=== PATIENT | female | born 1995 | race Caucasian/White ===

== ENCOUNTER 2018-01-05 01:16 | Emergency (ER) | payer SELFPAY ==
[2018-01-05] MEDS ORDERED: HALOPERIDOL LACTATE INJ 5 MG/1 ML VIAL IV ONE ×2 (01:32→03:40)
[2018-01-05] MEDS ORDERED: DIPHENHYDRAMINE HCL 50 MG/ML VIAL IV ONE (01:33)
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
[2018-01-05 02:22] LABS: ABSOLUTE EOSINOPHILS # (AUTO) 0.1 10^3/uL (0.0-0.6); ABSOLUTE LYMPHOCYTES (AUTO) 3.8 10^3/uL (0.5-4.7); ABSOLUTE MONOCYTES (AUTO) 0.6 10^3/uL (0.1-1.4); ABSOLUTE NEUT (AUTO) 7.2 10^3/uL (1.7-8.2); BASOPHILS % (AUTO) 0.4 % (0-2); HEMATOCRIT 39.4 % (36.0-47.0); HEMOGLOBIN 13.6 g/dL (12.0-15.5); LYMPHOCYTES % (AUTO) 32.3 % (13-45); MEAN CORPUSCULAR HGB CONC 34.5 g/dL (32.0-36.0); MEAN CORPUSCULAR VOLUME 87 fl (80-97); MONOCYTES % (AUTO) 5.2 % (3-13); PLATELET COUNT 390 10^3/uL (150-450); RED BLOOD COUNT 4.53 10^6/uL (3.72-5.28); RED CELL DISTRIBUTION WIDTH 12.6 % (11.5-14.0); SEGMENTED NEUTROPHILS % (AUTO) 61.1 % (42-78); TOTAL CELLS COUNTED % (AUTO) 100 %; WHITE BLOOD COUNT 11.7 10^3/uL (4.0-10.5)
[2018-01-05 02:28] LABS: APPEARANCE,URINE CLEAR; BILIRUBIN,URINE NEGATIVE (NEGATIVE); COLOR,URINE STRAW; GLUCOSE, URINE NEGATIVE (NEGATIVE); KETONES,URINE NEGATIVE (NEGATIVE); LEUKOCYTE ESTERASE,URINE NEGATIVE (NEGATIVE); NITRITE,URINE NEGATIVE (NEGATIVE); PROTEIN,URINE NEGATIVE (NEGATIVE); URINE SPECIFIC GRAVITY 1.002; UROBILINOGEN,URINE NEGATIVE mg/dL (<2.0)
[2018-01-05 02:44] LABS: URINE AMPHETAMINES SCREEN NEGATIVE; URINE BARBITURATES SCREEN NEGATIVE; URINE BENZODIAZEPINES SCREEN UNCONFIRMED POSITIVE; URINE PHENCYCLIDINE SCREEN NEGATIVE
[2018-01-05 02:51] LABS: ALANINE AMINOTRANSFERASE 18 U/L (9-52); ALBUMIN 4.4 g/dL (3.5-5.0); ALCOHOL 273 mg/dL (NONE DETECTED); ALKALINE PHOSPHATASE 67 U/L (38-126); ANION GAP 13 (5-19); ASPARTATE AMINO TRANSFERASE 21 U/L (14-36); BILIRUBIN,DIRECT 0.4 mg/dL (0.0-0.4); BILIRUBIN,TOTAL 0.4 mg/dL (0.2-1.3); BLOOD UREA NITROGEN 10 mg/dL (7-20); CALCIUM 9.4 mg/dL (8.4-10.2); CARBON DIOXIDE 23 mmol/L (22-30); CHLORIDE 112 mmol/L (98-107); GLUCOSE 107 mg/dL (75-110); POTASSIUM 3.8 mmol/L (3.6-5.0); SODIUM 148.1 mmol/L (137-145); TOTAL PROTEIN 7.2 g/dL (6.3-8.2)
[2018-01-05 02:52] LABS: ACETAMINOPHEN < 10 ug/mL (10-30); SALICYLATE < 1.0 mg/dL (2.0-20.0)
[2018-01-05 02:53] LABS: URINE MARIJUANA (THC) SCREEN NEGATIVE
[2018-01-05 02:54] LABS: URINE METHADONE SCREEN NEGATIVE
[2018-01-05 03:08] LABS: URINE COCAINE SCREEN NEGATIVE
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
[2018-01-05 10:13] VITALS: BP 128/81
--- NOTE | 2018-01-05 15:25 | EKG REPORT ---
SEVERITY:- BORDERLINE ECG - SINUS TACHYCARDIA BORDERLINE RIGHT AXIS DEVIATION BORDERLINE PROLONGED QT INTERVAL : Confirmed by: Lubna Gilliam MD 05-Jan-2018 15:25:02
== END 2018-01-05 10:12 | disposition home or self-care (01) ==
LOC: ER 01:16
DX: Z04.1 Encounter for examination and observation following transport accident (principal); F10.129 Alcohol abuse with intoxication, unspecified; R00.0 Tachycardia, unspecified
CPT/HCPCS: 93005; 96376; 99285; 96374; 36415; 80307 ×4; 84703; 85025; 80053; 81001; 93010; J1630

== ENCOUNTER 2018-04-13 00:08 | Inpatient (IN) | payer OTHER ==
[2018-04-13] MEDS ORDERED: NALOXONE HCL INJ/PF 0.4 MG/1 ML SDV IV ONE (00:09)
[2018-04-13] MEDS: NORMAL SALINE 1000 ML 1,000 ML IV PRN ×4 (00:10→05:00)
[2018-04-13] MEDS ORDERED: ETOMIDATE INJ/PF 20 MG/10 ML SDV IV ONE (00:12)
[2018-04-13] MEDS ORDERED: NALOXONE HCL INJ 2 MG/2 ML DISP.SYRIN ONE (00:14)
[2018-04-13] MEDS ORDERED: PROPOFOL 1,000 MG/100 ML INFUS..BTL IV ONE (00:23)
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
[2018-04-13] MEDS ORDERED: VECURONIUM BROMIDE INJ 10 MG VIAL IV ONE ×2 (00:31)
[2018-04-13] MEDS: PROPOFOL 1,000 MG/100 ML INFUS..BTL IV PRN ×2 (00:34→07:20)
[2018-04-13] MEDS ORDERED: SUCCINYLCHOLINE CHLORIDE INJ 200 MG/10 ML VIAL IV ONE (00:36)
--- NOTE | 2018-04-13 00:53 | RADIOLOGY REPORT (SQ) ---
EXAM DESCRIPTION: X-ray single view chest. CLINICAL HISTORY: 22 years Female, sp et tube COMPARISON: None. TECHNIQUE: Single portable view of the chest performed on 04/13/2018 at 12:34 AM FINDINGS: The lungs are well expanded and are clear. There is no evidence of a pneumothorax. The cardiac silhouette is normal in size and configuration. The mediastinal contours are normal. No acute osseous abnormality is identified. No focal soft tissue abnormalities are seen. Incidentally noted are bilateral nipple piercings. Lines and tubes: An endotracheal tube is present which terminates at the level of the inferior clavicular heads. A feeding tube extends below the diaphragm and terminates in the left upper quadrant in the region of the stomach. IMPRESSION: 1. No evidence of acute intrathoracic disease. 2. Life support lines and tubes in grossly satisfactory position.
[2018-04-13 01:08] LABS: ABSOLUTE LYMPHOCYTES (AUTO) 1.6 10^3/uL (0.5-4.7); ABSOLUTE MONOCYTES (AUTO) 0.5 10^3/uL (0.1-1.4); ABSOLUTE NEUT (AUTO) 3.5 10^3/uL (1.7-8.2); BASOPHILS % (AUTO) 0.6 % (0-2); EOSINOPHILS % (AUTO) 0.6 % (0-6); HEMATOCRIT 33.6 % (36.0-47.0); HEMOGLOBIN 11.8 g/dL (12.0-15.5); LYMPHOCYTES % (AUTO) 28.3 % (13-45); MEAN CORPUSCULAR HEMOGLOBIN 30.7 pg (27.0-33.4); MEAN CORPUSCULAR VOLUME 88 fl (80-97); PLATELET COUNT 308 10^3/uL (150-450); RED BLOOD COUNT 3.84 10^6/uL (3.72-5.28); RED CELL DISTRIBUTION WIDTH 12.2 % (11.5-14.0); SEGMENTED NEUTROPHILS % (AUTO) 62.5 % (42-78); TOTAL CELLS COUNTED % (AUTO) 100 %; WHITE BLOOD COUNT 5.7 10^3/uL (4.0-10.5)
[2018-04-13 01:13] LABS: VENOUS BLOOD BASE EXCESS -3.8 mmol/L; VENOUS BLOOD HCO3 21.8 mmol/L (20-32); VENOUS BLOOD PCO2 41.5 mmHg (35-63); VENOUS BLOOD PH 7.34 (7.30-7.42)
[2018-04-13 01:17] LABS: APPEARANCE,URINE CLEAR; BILIRUBIN,URINE NEGATIVE (NEGATIVE); COLOR,URINE COLORLESS; GLUCOSE, URINE NEGATIVE (NEGATIVE); KETONES,URINE NEGATIVE (NEGATIVE); LEUKOCYTE ESTERASE,URINE NEGATIVE (NEGATIVE); NITRITE,URINE NEGATIVE (NEGATIVE); PROTEIN,URINE NEGATIVE (NEGATIVE); URINE SPECIFIC GRAVITY 1.003; UROBILINOGEN,URINE NEGATIVE mg/dL (<2.0)
[2018-04-13 01:27] LABS: ALANINE AMINOTRANSFERASE 15 U/L (9-52); ALBUMIN 3.2 g/dL (3.5-5.0); ALCOHOL 142 mg/dL (NONE DETECTED); ALKALINE PHOSPHATASE 47 U/L (38-126); ANION GAP 9 (5-19); ASPARTATE AMINO TRANSFERASE 12 U/L (14-36); BILIRUBIN,DIRECT 0.1 mg/dL (0.0-0.4); BILIRUBIN,TOTAL 0.2 mg/dL (0.2-1.3); BLOOD UREA NITROGEN 14 mg/dL (7-20); CARBON DIOXIDE 22 mmol/L (22-30); CHLORIDE 113 mmol/L (98-107); GLUCOSE 113 mg/dL (75-110); POTASSIUM 3.8 mmol/L (3.6-5.0); SODIUM 144.4 mmol/L (137-145); TOTAL PROTEIN 5.3 g/dL (6.3-8.2)
[2018-04-13 01:30] LABS: ACETAMINOPHEN < 10 ug/mL (10-30); SALICYLATE < 1.0 mg/dL (2.0-20.0)
[2018-04-13 01:37] LABS: URINE AMPHETAMINES SCREEN UNCONFIRMED POSITIVE; URINE BARBITURATES SCREEN NEGATIVE; URINE BENZODIAZEPINES SCREEN NEGATIVE; URINE COCAINE SCREEN NEGATIVE; URINE MARIJUANA (THC) SCREEN NEGATIVE; URINE METHADONE SCREEN NEGATIVE; URINE PHENCYCLIDINE SCREEN NEGATIVE
[2018-04-13] MEDS ORDERED: NORMAL SALINE 1000 ML 1,000 ML IV ONE (02:06)
[2018-04-13] MEDS ORDERED: PROPOFOL 1,000 MG/100 ML INFUS..BTL IV PRN (02:20)
[2018-04-13 02:27] LABS: ARTERIAL BLOOD BASE EXCESS -4.2 mmol/L; ARTERIAL BLOOD FIO2 40%; ARTERIAL BLOOD HCO3 19.9 mmol/L (20-24); ARTERIAL BLOOD O2 SATURATION 98.9 % (94-98); ARTERIAL BLOOD PCO2 33.2 mmHg (35-45); ARTERIAL BLOOD PO2 147.9 mmHg (80-100); ARTERIAL BLOOD TOTAL CO2 20.9 mmol/L (21-25)
[2018-04-13 02:45] LABS: CREATINE KINASE MB 0.31 ng/mL (<4.55)
[2018-04-13 02:55] LABS: TROPONIN I < 0.012 ng/mL
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
[2018-04-13] MEDS: HEPARIN SOD (PORCINE) 5,000 UNIT/ML 1 ML SYRINGE SUBCUT SCH ×3 (06:50→21:55)
[2018-04-13 06:54] LABS: ARTERIAL BLOOD BASE EXCESS -4.5 mmol/L; ARTERIAL BLOOD FIO2 30%; ARTERIAL BLOOD H2CO3 1.11 mmol/L (1.05-1.35); ARTERIAL BLOOD HCO3 20.4 mmol/L (20-24); ARTERIAL BLOOD PCO2 36.8 mmHg (35-45); ARTERIAL BLOOD PH 7.36 (7.35-7.45); ARTERIAL BLOOD PO2 55.3 mmHg (80-100); ARTERIAL BLOOD TOTAL CO2 21.5 mmol/L (21-25)
[2018-04-13 07:23] LABS: CREATINE KINASE MB 0.43 ng/mL (<4.55)
[2018-04-13 07:24] LABS: TROPONIN I < 0.012 ng/mL
--- NOTE | 2018-04-13 09:19 | PDOC PROGRESS REPORT ---
Subjective Progress Note for:: 04/13/18 Subjective:: Patient is intubated but responding to questions. She does not open her eyes but she nods her head and raises her eyebrows. She also moves her hands purposefully. Reason For Visit: OVERDOSE Physical Exam Vital Signs: Temp Pulse Resp BP Pulse Ox 14 107/67 100 04/13/18 08:16 04/13/18 08:16 04/13/18 08:36 Intake & Output 04/12/18 04/13/18 04/14/18 06:59 06:59 06:59 Intake Total 3081 1067 Output Total 1000 Balance 2081 1067 Weight 50 kg General appearance: PRESENT: no acute distress, cooperative - As much as she can be while intubated and only lightly sedated, well-developed Head exam: PRESENT: atraumatic, normocephalic Mouth exam: PRESENT: moist Throat exam: PRESENT: other - Endotracheal tube in place. Orogastric tube in place. Neck exam: ABSENT: lymphadenopathy, tenderness Respiratory exam: PRESENT: clear to auscultation doris, symmetrical, unlabored. ABSENT: crackles, rales, rhonchi, stridor, wheezes Cardiovascular exam: PRESENT: RRR, +S1, +S2. ABSENT: systolic murmur Pulses: PRESENT: normal radial pulses, normal dorsalis pedis pul GI/Abdominal exam: PRESENT: normal bowel sounds, soft. ABSENT: distended, tenderness Extremities exam: ABSENT: calf tenderness, pedal edema Musculoskeletal exam: PRESENT: normal inspection Neurological exam: PRESENT: other - Responds to questions by nodding head. She is in soft wrist restraints but she does move her hands and will provide a thumbs up to answer questions. Results Laboratory Results: 04/13/18 00:48 04/13/18 00:48 04/13/18 04/13/18 04/13/18 00:48 00:48 00:48 WBC 5.7 RBC 3.84 Hgb 11.8 L Hct 33.6 L MCV 88 MCH 30.7 MCHC 35.0 RDW 12.2 Plt Count 308 Seg Neutrophils % 62.5 Lymphocytes % 28.3 Monocytes % 8.0 Eosinophils % 0.6 Basophils % 0.6 Absolute Neutrophils 3.5 Absolute Lymphocytes 1.6 Absolute Monocytes 0.5 Absolute Eosinophils 0.0 Absolute Basophils 0.0 Carbonic Acid HCO3/H2CO3 Ratio ABG pH ABG pCO2 ABG pO2 ABG HCO3 ABG O2 Saturation ABG Base Excess VBG pH 7.34 VBG pCO2 41.5 VBG HCO3 21.8 VBG Base Excess -3.8 FiO2 Sodium 144.4 Potassium 3.8 Chloride 113 H Carbon Dioxide 22 Anion Gap 9 BUN 14 Creatinine 0.64 Est GFR ( Amer) > 60 Est GFR (Non-Af Amer) > 60 Glucose 113 H Lactic Acid Calcium 8.0 L Total Bilirubin 0.2 AST 12 L ALT 15 Alkaline Phosphatase 47 Total Protein 5.3 L Albumin 3.2 L Serum HCG, Qual Urine Color Urine Appearance Urine pH Ur Specific [place] Urine Protein Urine Glucose (UA) Urine Ketones Urine Blood Urine Nitrite Ur Leukocyte Esterase Urine WBC (Auto) Urine RBC (Auto) 04/13/18 04/13/18 04/13/18 00:48 00:48 00:48 WBC RBC Hgb Hct MCV MCH MCHC RDW Plt Count Seg Neutrophils % Lymphocytes % Monocytes % Eosinophils % Basophils % Absolute Neutrophils Absolute Lymphocytes Absolute Monocytes Absolute Eosinophils Absolute Basophils Carbonic Acid HCO3/H2CO3 Ratio ABG pH ABG pCO2 ABG pO2 ABG HCO3 ABG O2 Saturation ABG Base Excess VBG pH VBG pCO2 VBG HCO3 VBG Base Excess FiO2 Sodium Potassium Chloride Carbon Dioxide Anion Gap BUN Creatinine Est GFR ( Amer) Est GFR (Non-Af Amer) Glucose Lactic Acid 1.9 Calcium Total Bilirubin AST ALT Alkaline Phosphatase Total Protein Albumin Serum HCG, Qual NEGATIVE Urine Color COLORLESS Urine Appearance CLEAR Urine pH 6.0 Ur Specific [place] 1.003 Urine Protein NEGATIVE Urine Glucose (UA) NEGATIVE Urine Ketones NEGATIVE Urine Blood NEGATIVE Urine Nitrite NEGATIVE Ur Leukocyte Esterase NEGATIVE Urine WBC (Auto) 0 Urine RBC (Auto) 0 04/13/18 04/13/18 01:35 06:20 WBC RBC Hgb Hct MCV MCH MCHC RDW Plt Count Seg Neutrophils % Lymphocytes % Monocytes % Eosinophils % Basophils % Absolute Neutrophils Absolute Lymphocytes Absolute Monocytes Absolute Eosinophils Absolute Basophils Carbonic Acid 1.00 L 1.11 HCO3/H2CO3 Ratio 19:1 18:1 ABG pH 7.40 7.36 ABG pCO2 33.2 L 36.8 ABG pO2 147.9 H 55.3 L ABG HCO3 19.9 L 20.4 ABG O2 Saturation 98.9 H 88.0 L ABG Base Excess -4.2 -4.5 VBG pH VBG pCO2 VBG HCO3 VBG Base Excess FiO2 40% 30% Sodium Potassium Chloride Carbon Dioxide Anion Gap BUN Creatinine Est GFR ( Amer) Est GFR (Non-Af Amer) Glucose Lactic Acid Calcium Total Bilirubin AST ALT Alkaline Phosphatase Total Protein Albumin Serum HCG, Qual Urine Color Urine Appearance Urine pH Ur Specific [place] Urine Protein Urine Glucose (UA) Urine Ketones Urine Blood Urine Nitrite Ur Leukocyte Esterase Urine WBC (Auto) Urine RBC (Auto) 04/13/18 04/13/18 04/13/18 00:48 00:48 06:45 Creatine Kinase 39 32 CK-MB (CK-2) 0.31 Troponin I < 0.012 04/13/18 06:45 Creatine Kinase CK-MB (CK-2) 0.43 Troponin I < 0.012 Impressions: Chest X-Ray 04/13/18 00:26 IMPRESSION: 1. No evidence of acute intrathoracic disease. 2. Life support lines and tubes in grossly satisfactory position. Assessment & Plan - Diagnosis (1) Overdose Qualifiers: Encounter type: subsequent encounter Injury intent: undetermined intent Qualified Code(s): T50.904D - Poisoning by unspecified drugs, medicaments and biological substances, undetermined, subsequent encounter Is this a current diagnosis for this admission?: Yes Plan: The patient was intubated for airway protection. She was given fluids. No specific antidote was required. Her alcohol level was elevated at 142. Urine screen was positive for amphetamines from her Adderall but she had no benzodiazepines despite prescription for Xanax. No serum level for Lunesta was obtained. Psychiatry will be seeing the patient today. She will be extubated. If psychiatry suggests and she is stable she can be discharged. I did speak to her father and there does seem to be a support mechanism in place for the immediate post discharge. (2) Acute alcohol intoxication Qualifiers: Complication of substance-induced condition: uncomplicated Qualified Code(s): F10.929 - Alcohol use, unspecified with intoxication, unspecified Is this a current diagnosis for this admission?: Yes Plan: Symptomatic treatment. Will try and use minimal medications. Encourage fluids. - Time Time Spent with patient: 25-34 minutes Medications reviewed and adjusted accordingly: Yes Anticipated discharge: Home Within: within 24 hours Disposition: I discussed the patient with her father who was present at the bedside. He is certainly supportive and his wishes are that the patient would be off of all medications if possible and utilize psychotherapy for her current issues.
[2018-04-13] MEDS ORDERED: SUCCINYLCHOLINE CHLORIDE INJ 200 MG/10 ML VIAL ONE (10:41)
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
[2018-04-13 13:56] LABS: TROPONIN I < 0.012 ng/mL
--- NOTE | 2018-04-13 15:37 | EKG REPORT ---
SEVERITY:- OTHERWISE NORMAL ECG - SINUS RHYTHM BORDERLINE RIGHT AXIS DEVIATION : Confirmed by: Rory Alvarez 13-Apr-2018 15:36:36
[2018-04-14 04:43] LABS: ABSOLUTE EOSINOPHILS # (AUTO) 0.1 10^3/uL (0.0-0.6); ABSOLUTE LYMPHOCYTES (AUTO) 2.1 10^3/uL (0.5-4.7); ABSOLUTE MONOCYTES (AUTO) 0.8 10^3/uL (0.1-1.4); ABSOLUTE NEUT (AUTO) 5.2 10^3/uL (1.7-8.2); BASOPHILS % (AUTO) 0.6 % (0-2); EOSINOPHILS % (AUTO) 1.5 % (0-6); HEMOGLOBIN 12.2 g/dL (12.0-15.5); MEAN CORPUSCULAR HEMOGLOBIN 30.3 pg (27.0-33.4); MEAN CORPUSCULAR HGB CONC 34.8 g/dL (32.0-36.0); MEAN CORPUSCULAR VOLUME 87 fl (80-97); MONOCYTES % (AUTO) 9.5 % (3-13); PLATELET COUNT 292 10^3/uL (150-450); RED BLOOD COUNT 4.02 10^6/uL (3.72-5.28); RED CELL DISTRIBUTION WIDTH 11.9 % (11.5-14.0); SEGMENTED NEUTROPHILS % (AUTO) 63.4 % (42-78); TOTAL CELLS COUNTED % (AUTO) 100 %; WHITE BLOOD COUNT 8.2 10^3/uL (4.0-10.5)
[2018-04-14 05:06] LABS: ALANINE AMINOTRANSFERASE 9 U/L (9-52); ALBUMIN 3.3 g/dL (3.5-5.0); ALKALINE PHOSPHATASE 52 U/L (38-126); ANION GAP 7 (5-19); ASPARTATE AMINO TRANSFERASE 15 U/L (14-36); BILIRUBIN,DIRECT 0.2 mg/dL (0.0-0.4); BILIRUBIN,TOTAL 0.6 mg/dL (0.2-1.3); BLOOD UREA NITROGEN 7 mg/dL (7-20); CARBON DIOXIDE 27 mmol/L (22-30); CHLORIDE 104 mmol/L (98-107); GLUCOSE 100 mg/dL (75-110); POTASSIUM 4.4 mmol/L (3.6-5.0); SODIUM 138.1 mmol/L (137-145); TOTAL PROTEIN 5.5 g/dL (6.3-8.2)
[2018-04-14] MEDS: HEPARIN SOD (PORCINE) 5,000 UNIT/ML 1 ML SYRINGE SUBCUT SCH ×3 (06:02→21:28)
--- NOTE | 2018-04-14 16:12 | PSYCHOLOGICAL NOTE ---
Psych Note - Psych Note Psych Note: Reason for Consult: intentional overdose ANAYELI STANLEY is a 22 year old female with a past medical history of ADD, depression, anxiety suggested by empty bottles of Xanax, Adderall, clonidine and Lunesta. 311 (3 2.9) unspecified depressive disorder Impression\plan: Patient is recommended for continued IVC. Patient admits to intentional overdose with intent to kill herself. There is significant concern as the patient disclosed an intentional overdose less than 30 days ago in February which resulted in an ICU stay at [facility]. Patient is demonstrating destructive behaviours that are escalating and poor coping skills. Placement will be sought once medically cleared. Patient will be reevaluated. Dr. Pineda was consulted and the care management this patient; attending physician agreement with augmentations and disposition.
--- NOTE | 2018-04-14 18:21 | PDOC PROGRESS REPORT ---
Subjective Progress Note for:: 04/14/18 Subjective:: The patient is resting comfortably in bed. Her father is at the bedside. Her only complaint today is a sore throat from the intubation. Reason For Visit: OVERDOSE Physical Exam Vital Signs: Temp Pulse Resp BP Pulse Ox 98.5 F 62 20 81/46 L 100 04/14/18 15:35 04/14/18 15:35 04/14/18 15:35 04/14/18 15:35 04/14/18 15:35 Intake & Output 04/13/18 04/14/18 04/15/18 06:59 06:59 06:59 Intake Total 3081 2287 350 Output Total 1000 Balance 2081 2287 350 Weight 50 kg 51.9 kg General appearance: PRESENT: no acute distress, cooperative, well-developed Head exam: PRESENT: atraumatic, normocephalic Respiratory exam: PRESENT: clear to auscultation doris, symmetrical, unlabored. ABSENT: rales, rhonchi, stridor, wheezes Cardiovascular exam: PRESENT: RRR, +S1, +S2 GI/Abdominal exam: PRESENT: normal bowel sounds, soft. ABSENT: distended, guarding, tenderness Extremities exam: ABSENT: calf tenderness, joint swelling, pedal edema Musculoskeletal exam: PRESENT: normal inspection Neurological exam: PRESENT: alert, awake, oriented to person, oriented to place, oriented to time, oriented to situation, CN II-XII grossly intact Psychiatric exam: PRESENT: appropriate affect, normal mood. ABSENT: agitated, anxious Focused psych exam: ABSENT: delusional, restlessness Skin exam: PRESENT: dry, intact, warm. ABSENT: cyanosis, rash Results Laboratory Results: 04/14/18 04:05 04/14/18 04:05 04/14/18 04/14/18 04:05 04:05 WBC 8.2 RBC 4.02 Hgb 12.2 Hct 35.0 L MCV 87 MCH 30.3 MCHC 34.8 RDW 11.9 Plt Count 292 Seg Neutrophils % 63.4 Lymphocytes % 25.0 Monocytes % 9.5 Eosinophils % 1.5 Basophils % 0.6 Absolute Neutrophils 5.2 Absolute Lymphocytes 2.1 Absolute Monocytes 0.8 Absolute Eosinophils 0.1 Absolute Basophils 0.0 Sodium 138.1 Potassium 4.4 Chloride 104 Carbon Dioxide 27 Anion Gap 7 BUN 7 Creatinine 0.64 Est GFR ( Amer) > 60 Est GFR (Non-Af Amer) > 60 Glucose 100 Calcium 9.0 Total Bilirubin 0.6 AST 15 ALT 9 Alkaline Phosphatase 52 Total Protein 5.5 L Albumin 3.3 L 04/13/18 04/13/18 04/13/18 00:48 00:48 06:45 Creatine Kinase 39 32 CK-MB (CK-2) 0.31 Troponin I < 0.012 04/13/18 04/13/18 04/13/18 06:45 13:05 13:05 Creatine Kinase 40 CK-MB (CK-2) 0.43 0.50 Troponin I < 0.012 < 0.012 Impressions: Chest X-Ray 04/13/18 00:26 IMPRESSION: 1. No evidence of acute intrathoracic disease. 2. Life support lines and tubes in grossly satisfactory position. Assessment & Plan - Diagnosis (1) Overdose Qualifiers: Encounter type: subsequent encounter Injury intent: undetermined intent Qualified Code(s): T50.904D - Poisoning by unspecified drugs, medicaments and biological substances, undetermined, subsequent encounter Is this a current diagnosis for this admission?: Yes Plan: The patient is awake and alert. She is interactive. Her tox screen was positive for amphetamines (she is on Adderall) but no benzodiazepines. The Adderall should have cleared her system by now. (2) Acute alcohol intoxication Qualifiers: Complication of substance-induced condition: uncomplicated Qualified Code(s): F10.929 - Alcohol use, unspecified with intoxication, unspecified Is this a current diagnosis for this admission?: Yes Plan: No ongoing effects of the acute episode of alcohol intoxication. - Time Time Spent with patient: Less than 15 minutes Medications reviewed and adjusted accordingly: Yes - Plan Summary Plan Summary: From a medical standpoint the patient is cleared for discharge. In talking to psychiatry, and considering that this is not her first overdose with medications and alcohol, they feel that further treatment is necessary. At this point she remains on involuntary commitment. I believe they will look for placement for inpatient therapy. I certainly defer to their judgment.
[2018-04-15] MEDS: HEPARIN SOD (PORCINE) 5,000 UNIT/ML 1 ML SYRINGE SUBCUT SCH ×2 (06:09→16:33)
--- NOTE | 2018-04-15 19:57 | PDOC PROGRESS REPORT ---
Subjective Progress Note for:: 04/15/18 Subjective:: Reports doing much better. Still with some sore throat related to her intubation but much better. No suicidal ideation or homicidal ideation at this time. Denies chest pain or palpitations. No abdominal pain, no nausea or vomiting. Reason For Visit: OVERDOSE Physical Exam Vital Signs: Temp Pulse Resp BP Pulse Ox 98.3 F 72 18 100/54 L 100 04/15/18 15:54 04/15/18 15:54 04/15/18 15:54 04/15/18 15:54 04/15/18 15:54 Intake & Output 04/14/18 04/15/18 04/16/18 06:59 06:59 06:59 Intake Total 2287 1250 1118 Balance 2287 1250 1118 Weight 51.9 kg 51 kg General appearance: PRESENT: no acute distress, cooperative, well-developed Head exam: PRESENT: atraumatic, normocephalic Respiratory exam: PRESENT: clear to auscultation doris, symmetrical, unlabored. ABSENT: rales, rhonchi, stridor, wheezes Cardiovascular exam: PRESENT: RRR, +S1, +S2 GI/Abdominal exam: PRESENT: normal bowel sounds, soft. ABSENT: distended, guarding, tenderness Extremities exam: ABSENT: calf tenderness, joint swelling, pedal edema Musculoskeletal exam: PRESENT: normal inspection Neurological exam: PRESENT: alert, awake, oriented to person, oriented to place, oriented to time, oriented to situation, CN II-XII grossly intact Psychiatric exam: PRESENT: appropriate affect, normal mood. ABSENT: agitated, anxious Focused psych exam: ABSENT: delusional, restlessness Skin exam: PRESENT: dry, intact, warm. ABSENT: cyanosis, rash Results Laboratory Results: 04/14/18 04:05 04/14/18 04:05 04/13/18 04/13/18 04/13/18 00:48 00:48 06:45 Creatine Kinase 39 32 CK-MB (CK-2) 0.31 Troponin I < 0.012 04/13/18 04/13/18 04/13/18 06:45 13:05 13:05 Creatine Kinase 40 CK-MB (CK-2) 0.43 0.50 Troponin I < 0.012 < 0.012 Impressions: Chest X-Ray 12/25/18 00:26 IMPRESSION: 1. No evidence of acute intrathoracic disease. 2. Life support lines and tubes in grossly satisfactory position. Assessment & Plan - Diagnosis (1) Acute alcohol intoxication Qualifiers: Complication of substance-induced condition: uncomplicated Qualified Code(s): F10.929 - Alcohol use, unspecified with intoxication, unspecified Is this a current diagnosis for this admission?: Yes (2) Overdose Qualifiers: Encounter type: subsequent encounter Injury intent: undetermined intent Qualified Code(s): T50.904D - Poisoning by unspecified drugs, medicaments and biological substances, undetermined, subsequent encounter Is this a current diagnosis for this admission?: Yes - Plan Summary Plan Summary: Patient remains medically stable. Psych follow-up. Awaiting transfer for likely continued inpatient psychiatric care at this time. Father at bedside. Patient and father's questions answered to their satisfaction.
[2018-04-16 15:07] VITALS: BP 124/65
--- NOTE | 2018-04-18 20:31 | PDOC DISCHARGE SUMMARY ---
General - Admit/Disc Date/PCP Admission Date/Primary Care Provider: 04/13/18 03:11 Discharge Date: 04/16/18 - Discharge Diagnosis (1) Acute alcohol intoxication Is this a current diagnosis for this admission?: Yes (2) Overdose Is this a current diagnosis for this admission?: Yes - Additional Information Resuscitation Status: Full Code Home Medications: Alprazolam 0.5 mg PO DAILYP PRN 04/13/18 Clonidine HCl [Catapres 0.1 mg Tablet] 0.1 mg PO QIDP PRN 04/13/18 Dextroamphetamine/Amphetamine [Adderall Xr 30 mg Capsule] 30 mg PO QAM 04/13/18 Dextroamphetamine/Amphetamine [Dextroamp-Amphetamin 30 mg Tab] 30 mg PO NOON 04/13/18 Eszopiclone 3 mg pe PO QHS 04/13/18 Oxcarbazepine 300 mg PO QHS 04/13/18 Paroxetine HCl 15 mg PO QHS 04/13/18 History of Present Illness History of Present Illness: Patient was admitted after presentation as in HPI below: "ANAYELI STANLEY is a 22 year old female with a past medical history of ADD, depression, anxiety suggested by empty bottles of Xanax, Adderall, clonidine and Lunesta. Patient contacted 911 admitting intention to harm, EMS arrives finding patient sedated, smelling of alcohol and intoxicated with empty bottles of the above. She is brought to the emergency room for evaluation and found with hypotension, a GCS of 3, unresponsive to noxious stimuli, rhonchorous without gag reflex and pinpoint pupils. There was no response to a trial of Narcan x2 and subsequently intubated for airway protection. Poison control was contacted recommending continued ventilator support, propofol and telemetry. Patient is IVCed but unable to provide further history." Hospital Course Hospital Course: Patient was admitted and managed as follows: (1) Encephalopathy Is this a current diagnosis for this admission?: Yes Plan: She was suspected of polysubstance ingestion with intention to harm. Poison con trol recommending supportive care with continued ventilator pending ethanol washout. Patient improved and was subsequently extubated and transferred to medical bed. Her altered mental status has clinically resolved. (2) Overdose Is this a current diagnosis for this admission?: Yes Plan: Patient reported intention to harm, mental health consulted. Patient was evaluated and it was recommended she will need acute psychiatric hos pitalization, especially as this was her second suicide attempt within 30 days. (3) Acute alcohol intoxication Qualifiers: Complication of substance-induced condition: uncomplicated Qualified Code(s): F10.929 - Alcohol use, unspecified with intoxication, unspecified Is this a current diagnosis for this admission?: Yes Plan: She was treated with supportive care, patient without DTs. (3) disposition She is medically cleared, stable. She has been accepted to [facility] and transferred in a stable condition. Physical Exam Vital Signs: Temp Pulse Resp BP Pulse Ox 98.2 F 72 18 124/65 100 04/16/18 11:28 04/16/18 11:47 04/16/18 11:47 04/16/18 11:47 04/16/18 11:47 Intake & Output 04/15/18 04/16/18 04/17/18 06:59 06:59 06:59 Intake Total 1250 1118 Balance 1250 1118 Weight 51 kg 50.3 kg General appearance: PRESENT: no acute distress, cooperative, well-developed Head exam: PRESENT: atraumatic, normocephalic Respiratory exam: PRESENT: clear to auscultation doris, symmetrical, unlabored. ABSENT: rales, rhonchi, stridor, wheezes Cardiovascular exam: PRESENT: RRR, +S1, +S2 GI/Abdominal exam: PRESENT: normal bowel sounds, soft. ABSENT: distended, guarding, tenderness Extremities exam: ABSENT: calf tenderness, joint swelling, pedal edema Musculoskeletal exam: PRESENT: normal inspection Neurological exam: PRESENT: alert, awake, oriented to person, oriented to place, oriented to time, oriented to situation, CN II-XII grossly intact Psychiatric exam: PRESENT: appropriate affect, normal mood. ABSENT: agitated, anxious Focused psych exam: ABSENT: delusional, restlessness Skin exam: PRESENT: dry, intact, warm. ABSENT: cyanosis, rash Results Laboratory Results: 04/14/18 04:05 04/14/18 04:05 04/13/18 04/13/18 04/13/18 00:48 00:48 06:45 Creatine Kinase 39 32 CK-MB (CK-2) 0.31 Troponin I < 0.012 04/13/18 04/13/18 04/13/18 06:45 13:05 13:05 Creatine Kinase 40 CK-MB (CK-2) 0.43 0.50 Troponin I < 0.012 < 0.012 Impressions: Chest X-Ray 04/13/18 00:26 IMPRESSION: 1. No evidence of acute intrathoracic disease. 2. Life support lines and tubes in grossly satisfactory position. Qualifiers - * PATIENT BEING DISCHARGED WITH ANY OF THE FOLLOWING DIAGNOSIS: No
== END 2018-04-16 16:09 | DRG 917 ==
LOC: ER 00:08 → EH 03:11 → 3N 10:50
PROVIDERS: ADMIT Internal Medicine; ATTEND Internal Medicine
PROC: 5A1935Z Respiratory Ventilation, Less than 24 Consecutive Hours (ICD-10-PCS; principal; 2018-04-13)
PROC: 0BH17EZ Insertion of Endotracheal Airway into Trachea, Via Natural or Artificial Opening (ICD-10-PCS; 2018-04-13)
DX: T46.5X2A Poisoning by other antihypertensive drugs, intentional self-harm, initial encounter (principal); G92 Toxic encephalopathy; T42.6X2A Poisoning by other antiepileptic and sedative-hypnotic drugs, intentional self-harm, initial encounter; T43.622A Poisoning by amphetamines, intentional self-harm, initial encounter; R40.2432 Glasgow coma scale score 3-8, at arrival to emergency department; Y92.009 Unspecified place in unspecified non-institutional (private) residence as the place of occurrence of the external cause; F98.8 Other specified behavioral and emotional disorders with onset usually occurring in childhood and adolescence; F10.129 Alcohol abuse with intoxication, unspecified; I95.9 Hypotension, unspecified; F32.9 Major depressive disorder, single episode, unspecified; F41.9 Anxiety disorder, unspecified; Z91.5 Personal history of self-harm; Z79.899 Other long term (current) drug therapy
CPT/HCPCS: 36415; 51702; 71045; 80053; 80307; 81001; 82550; 82553; 82803; 83605; 84443; 84484; 84703; 85025; 93005; 93010; 94002; 99291; J0330; J1644; J2310; J2704; J3490; J7030

== ENCOUNTER 2018-09-19 05:55 | Inpatient (IN) | payer SELFPAY ==
[2018-09-19] MEDS ORDERED: NORMAL SALINE 1000 ML 1,000 ML IV ONE ×2 (06:25→14:44)
[2018-09-19 06:33] LABS: ABSOLUTE LYMPHOCYTES (AUTO) 1.8 10^3/uL (0.5-4.7); ABSOLUTE MONOCYTES (AUTO) 0.5 10^3/uL (0.1-1.4); ABSOLUTE NEUT (AUTO) 2.9 10^3/uL (1.7-8.2); BASOPHILS % (AUTO) 0.5 % (0-2); EOSINOPHILS % (AUTO) 0.1 % (0-6); HEMATOCRIT 36.7 % (36.0-47.0); HEMOGLOBIN 12.7 g/dL (12.0-15.5); LYMPHOCYTES % (AUTO) 34.9 % (13-45); MEAN CORPUSCULAR HEMOGLOBIN 29.7 pg (27.0-33.4); MEAN CORPUSCULAR HGB CONC 34.8 g/dL (32.0-36.0); MEAN CORPUSCULAR VOLUME 85 fl (80-97); MONOCYTES % (AUTO) 8.7 % (3-13); PLATELET COUNT 356 10^3/uL (150-450); RED CELL DISTRIBUTION WIDTH 12.9 % (11.5-14.0); SEGMENTED NEUTROPHILS % (AUTO) 55.8 % (42-78); TOTAL CELLS COUNTED % (AUTO) 100 %; WHITE BLOOD COUNT 5.3 10^3/uL (4.0-10.5)
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
[2018-09-19 06:44] LABS: ACETAMINOPHEN < 10 ug/mL (10-30); ALANINE AMINOTRANSFERASE 13 U/L (9-52); ALBUMIN 4.2 g/dL (3.5-5.0); ALCOHOL 166 mg/dL (NONE DETECTED); ALKALINE PHOSPHATASE 59 U/L (38-126); ANION GAP 14 (5-19); ASPARTATE AMINO TRANSFERASE 28 U/L (14-36); BILIRUBIN,DIRECT 0.3 mg/dL (0.0-0.4); BILIRUBIN,TOTAL 0.4 mg/dL (0.2-1.3); BLOOD UREA NITROGEN 8 mg/dL (7-20); CALCIUM 9.3 mg/dL (8.4-10.2); CARBON DIOXIDE 23 mmol/L (22-30); CHLORIDE 107 mmol/L (98-107); GLUCOSE 115 mg/dL (75-110); POTASSIUM 3.9 mmol/L (3.6-5.0); SALICYLATE < 1.0 mg/dL (2.0-20.0); SODIUM 143.8 mmol/L (137-145); TOTAL PROTEIN 7.1 g/dL (6.3-8.2)
[2018-09-19 06:44] LABS: APPEARANCE,URINE CLEAR; BILIRUBIN,URINE NEGATIVE (NEGATIVE); COLOR,URINE STRAW; GLUCOSE, URINE NEGATIVE (NEGATIVE); KETONES,URINE NEGATIVE (NEGATIVE); LEUKOCYTE ESTERASE,URINE NEGATIVE (NEGATIVE); NITRITE,URINE NEGATIVE (NEGATIVE); PROTEIN,URINE NEGATIVE (NEGATIVE); URINE SPECIFIC GRAVITY 1.002; UROBILINOGEN,URINE NEGATIVE mg/dL (<2.0)
[2018-09-19 07:05] LABS: URINE AMPHETAMINES SCREEN UNCONFIRMED POSITIVE; URINE BARBITURATES SCREEN NEGATIVE; URINE BENZODIAZEPINES SCREEN UNCONFIRMED POSITIVE; URINE COCAINE SCREEN NEGATIVE; URINE MARIJUANA (THC) SCREEN NEGATIVE; URINE METHADONE SCREEN NEGATIVE; URINE PHENCYCLIDINE SCREEN NEGATIVE
[2018-09-19 11:05] LABS: ACETAMINOPHEN < 10 ug/mL (10-30); SALICYLATE < 1.0 mg/dL (2.0-20.0)
[2018-09-19] MEDS ORDERED: POTASSI CL 20 MEQ/50 ML RIDER 20 MEQ/50 ML RTUPB IV ONE (14:36)
[2018-09-19] MEDS ORDERED: SODIUM BICARBONATE 8.4% INJ 50 MEQ/50 ML DISP.SYRIN IV ONE (14:37)
[2018-09-19] MEDS ORDERED: ONDANSETRON HCL INJ/PF 4 MG/2 ML SDV IV ONE (15:04)
--- NOTE | 2018-09-19 15:04 | RADIOLOGY REPORT (SQ) ---
EXAM DESCRIPTION: CT HEAD WITHOUT COMPLETED DATE/TIME: 09/19/2018 2:43 pm REASON FOR STUDY: Overdose, seizure COMPARISON: None. TECHNIQUE: Axial images acquired through the brain without intravenous contrast. Images reviewed wi th bone, brain and subdural windows. Images stored on PACS. All CT scanners at this facility use dose modulation, iterative reconstruction, and/or weight based d osing when appropriate to reduce radiation dose to as low as reasonably achievable (ALARA). [facility]: Dose Right [facility]: CareDose [facility]: Dose Right [facility]: Teradose 4D [facility]: [employer] RADIATION DOSE: CT Rad equipment meets quality standard of care and radiation dose reduction techniq ues were employed. CTDIvol: 53.2 mGy. DLP: 1369 mGy-cm. mGy. LIMITATIONS: Motion artifact FINDINGS: VENTRICLES: Normal size and contour. CEREBRUM: No masses. No hemorrhage. No midline shift. No evidence for acute infarction. Normal gra y/white matter differentiation. No areas of low density in the white matter. CEREBELLUM: No masses. No hemorrhage. No alteration of density. No evidence for acute infarction. EXTRAAXIAL SPACES: No fluid collections. No masses. ORBITS AND GLOBE: No intra- or extraconal masses. Normal contour of globe without masses. CALVARIUM: No fracture. PARANASAL SINUSES: No fluid or mucosal thickening. SOFT TISSUES: No mass or hematoma. OTHER: No other significant finding. IMPRESSION: NO ACUTE INTRACRANIAL IMAGING FINDINGS. EVIDENCE OF ACUTE STROKE: NO. COMMENT: Quality ID # [id number]: Final reports with documentation of one or more dose reduction techniques (e.g., Automated exposure control, adjustment of the mA and/or kV according to patient size, use of iterative reconstruction technique) TECHNICAL DOCUMENTATION: JOB ID: [id number]- All Rights Reserved Reading location - IP/workstation name: [email or web address]
[2018-09-19 15:11] LABS: ANION GAP 18 (5-19); BLOOD UREA NITROGEN 8 mg/dL (7-20); CARBON DIOXIDE 17 mmol/L (22-30); CHLORIDE 110 mmol/L (98-107); GLUCOSE 97 mg/dL (75-110); POTASSIUM 3.8 mmol/L (3.6-5.0); SODIUM 144.6 mmol/L (137-145)
[2018-09-19] MEDS ORDERED: LORAZEPAM INJ 2 MG/1 ML VIAL ONE ×2 (15:52→18:46)
[2018-09-19] MEDS ORDERED: LORAZEPAM INJ 2 MG/1 ML VIAL IV ONE ×3 (16:16→20:00)
[2018-09-19] MEDS ORDERED: FOLIC ACID INJ 5 MG/1 ML 10 ML VIAL IV ONE (16:24)
[2018-09-19] MEDS ORDERED: THIAMINE HCL 100 MG in NORMAL SALINE 50 ML IV ONE (16:24)
[2018-09-19] MEDS ORDERED: THIAMINE HCL INJ 200 MG/2 ML VIAL ONE (17:11)
--- NOTE | 2018-09-19 17:32 | EKG REPORT ---
SEVERITY:- ABNORMAL ECG - SINUS TACHYCARDIA BORDERLINE RIGHT AXIS DEVIATION PROLONGED QT INTERVAL : Confirmed by: Lubna Gilliam MD 19-Sep-2018 17:32:14
--- NOTE | 2018-09-19 17:32 | EKG REPORT ---
SEVERITY:- BORDERLINE ECG - SINUS TACHYCARDIA BORDERLINE RIGHT AXIS DEVIATION BORDERLINE PROLONGED QT INTERVAL : Confirmed by: Lubna Gilliam MD 19-Sep-2018 17:32:18
--- NOTE | 2018-09-19 17:32 | EKG REPORT ---
SEVERITY:- BORDERLINE ECG - SINUS TACHYCARDIA BORDERLINE RIGHT AXIS DEVIATION BORDERLINE T ABNORMALITIES, DIFFUSE LEADS : Confirmed by: Lubna Gilliam MD 19-Sep-2018 17:32:09
[2018-09-19] MEDS ORDERED: PROMETHAZINE HCL 25 MG TABLET PO PRN (19:13)
[2018-09-19] MEDS ORDERED: MAG HYDROX/AL HYDROX/SIMETH SUSP 30 ML UDCUP PO PRN (19:13)
[2018-09-19] MEDS ORDERED: PROMETHAZINE HCL INJ 25 MG/1 ML VIAL IV PRN (19:13)
[2018-09-19] MEDS ORDERED: ACETAMINOPHEN 325 MG TABLET PO PRN (19:13)
[2018-09-19] MEDS ORDERED: MAGNESIUM HYDROXIDE SUSP 30 ML UDCUP PO PRN (19:13)
[2018-09-19] MEDS ORDERED: DIPHENHYDRAMINE HCL 50 MG/ML VIAL IV PRN (19:34)
--- NOTE | 2018-09-19 19:59 | PDOC H&P ---
History of Present Illness Admission Date/PCP: 09/19/18 17:56 Patient complains of: Intentional overdose while intoxicated from alcohol History of Present Illness: ANAYELI STANLEY is a 23 year old female on multiple psychiatric medications. She has a history of alcohol abuse. This in fact is her third overdose according to the patient. Evidently the patient was feeling and depressed and drank a bottle of wine last night. She then proceeded to poor all of her psychiatric medications onto the bed and took a handful of pills. On evaluation at the hospital she was given activated charcoal. Serum alcohol was 166. Her prescribed medications include Lunesta, Latuda, Wellbutrin, Seroquel, Xanax and dextroamphetamine. During her evaluation she experienced 2 grand mal seizures. They seem to respond well to 2 mg of Ativan given by intravenous. After my en counter with the patient she experienced a third seizure and was given lorazepam once again. Poison control was contacted. The patient needs to be monitored continuously with serial EKGs. She did exhibit a transient widening of the QRS interval with a peak at 500 and it is now down to 441. Unfortunately her QRS complex continues to increase. On admission it was 94, second EKG it was 130 EKG it was 102. A fourth EKG is ordered for later tonight. she was referred to the hospitalist service for admission. She was also seen by psychiatry and is currently on an involuntary commitment Past Medical History Past Medical History: It is very difficult to obtain medical history and review of systems due to the patient's current mental state which is driven by the alcohol level of 166 as well as the Lorazepam given for seizure. Cardiac Medical History: Reports: None Pulmonary Medical History: Reports: None EENT Medical History: Reports: None Neurological Medical History: Reports: None Endocrine Medical History: Reports: None Renal/ Medical History: Reports: None Malignancy Medical History: Reports: None GI Medical History: Reports: None Musculoskeltal Medical History: Reports: None Skin Medical History: Reports: None Psychiatric Medical History: Reports: Alcohol Dependency, Depression, Other - Suicide attempt by overdose Traumatic Medical History: Reports: None Hematology: Reports: None Infectious Medical History: Reports: None Past Surgical History Past Surgical History: Patient denies any past surgical history. Past Surgical History: Reports: None Social History Information Source: Patient Lives with: Other - Unable to determine based on the patient's reporting Smoking Status: Unknown if Ever Smoked Frequency of Alcohol Use: Social Last Alcohol Use: 09/18/18 Hx Recreational Drug Use: Yes Drugs: Marijuana, Hallucinogen Hx Prescription Drug Abuse: Yes Past Social History Note: The patient was unable to characterize her current relationship. She is single. She has no children. - Advance Directive Resuscitation Status: Full Code Surrogate healthcare decision maker:: The patient is incapable of making decisions at this time. She will be admitted as a full code. Once patient is no longer intoxicated a specific discussion can be had about CODE STATUS. Family History Family History: Other - Patient had limited details but reports that her father was a bad alcoholic Parental Family History Reviewed: Yes Children Family History Reviewed: NA Sibling(s) Family History Reviewed.: Yes - The patient reports that she has a sister with a history of prescription drug abuse Medication/Allergy Home Medications: Alprazolam [Xanax Xr] 2 mg PO Q12HP PRN 09/19/18 Bupropion HCl [Wellbutrin Xl 300mg 24hr Tablet] 300 mg PO DAILY MDD FILLED 07/13 FOR 30 DAY SUPPLY 09/19/18 Dextroamphetamine/Amphetamine [Dextroamp-Amphet ER 30 mg Cap] 30 mg PO BID 09/19/18 Eszopiclone 3 mg PO HSP PRN 09/19/18 Ethinyl Estradiol/Drospirenone [Drospirenone-Ee 3-0.02 mg Tab] 1 tab PO DAILY 09/19/18 Lurasidone HCl [Latuda] 20 mg PO DAILY 09/19/18 Lurasidone HCl [Latuda] 120 mg PO DAILY 09/19/18 Nitrofurantoin Macrocrystal [Macrodantin] 100 mg PO BID MDD FILLED 09/14 FOR 5 DAY SUPPLY 09/19/18 Phenazopyridine HCl [Pyridium 200 mg Tablet] 200 mg PO TIDP PRN 09/19/18 Quetiapine Fumarate [Seroquel 100 mg Tablet] 100 mg PO Q12 09/19/18 Allergies/Adverse Reactions: No Known Allergies Allergy (Verified 09/19/18 07:19) Review of Systems ROS unobtainable: Due to mental status Physical Exam Vital Signs: Temp Pulse Resp BP Pulse Ox 97.2 F 113 H 20 126/86 H 98 09/19/18 05:56 09/19/18 05:56 09/19/18 18:01 09/19/18 18:01 09/19/18 18:01 Intake & Output 09/18/18 09/19/18 09/20/18 06:59 06:59 06:59 Intake Total 2049 Balance 2049 Weight 45.4 kg General appearance: PRESENT: mild distress, thin, well-developed Head exam: PRESENT: atraumatic, normocephalic Eye exam: PRESENT: conjunctiva pink, PERRLA. ABSENT: scleral icterus Ear exam: PRESENT: normal external ear exam Mouth exam: PRESENT: dry mucosa - Very dry mucosa. Remnants of activated charcoal remain., neck supple, tongue midline Neck exam: PRESENT: full ROM. ABSENT: carotid bruit, JVD, lymphadenopathy, tenderness, tracheal deviation Respiratory exam: PRESENT: clear to auscultation doris, symmetrical, unlabored. ABSENT: accessory muscle use, rales, rhonchi, tachypnea, wheezes Cardiovascular exam: PRESENT: RRR, +S1, +S2, tachycardia - Borderline tachycardia GI/Abdominal exam: PRESENT: normal bowel sounds, soft. ABSENT: distended, tenderness Rectal exam: PRESENT: deferred Gentrourinary exam: ABSENT: indwelling catheter Extremities exam: ABSENT: joint swelling, pedal edema Musculoskeletal exam: PRESENT: normal inspection Neurological exam: PRESENT: alert, altered, awake, oriented to person, oriented to place, oriented to situation - She knew she was in a hospital. She had extreme difficulty retaining any information and had markedly reduced concentration and attention span., other - Patient was intermittently tremulous. She was having great difficulty accomplishing physical tasks such as drinking water with a straw. Psychiatric exam: PRESENT: unusual affect. ABSENT: agitated, anxious Focused psych exam: PRESENT: restlessness. ABSENT: delusional - She did report hearing voices earlier., internal stimuli Results Laboratory Results: 09/19/18 06:00 09/19/18 14:44 09/19/18 09/19/18 09/19/18 06:00 06:00 06:00 WBC 5.3 RBC 4.30 Hgb 12.7 Hct 36.7 MCV 85 MCH 29.7 MCHC 34.8 RDW 12.9 Plt Count 356 Seg Neutrophils % 55.8 Lymphocytes % 34.9 Monocytes % 8.7 Eosinophils % 0.1 Basophils % 0.5 Absolute Neutrophils 2.9 Absolute Lymphocytes 1.8 Absolute Monocytes 0.5 Absolute Eosinophils 0.0 Absolute Basophils 0.0 Sodium 143.8 Potassium 3.9 Chloride 107 Carbon Dioxide 23 Anion Gap 14 BUN 8 Creatinine 0.82 Est GFR ( Amer) > 60 Est GFR (Non-Af Amer) > 60 Glucose 115 H Calcium 9.3 Magnesium Total Bilirubin 0.4 AST 28 ALT 13 Alkaline Phosphatase 59 Total Protein 7.1 Albumin 4.2 Serum HCG, Qual NEGATIVE Urine Color Urine Appearance Urine pH Ur Specific [place] Urine Protein Urine Glucose (UA) Urine Ketones Urine Blood Urine Nitrite Ur Leukocyte Esterase Urine RBC (Auto) 09/19/18 09/19/18 09/19/18 06:00 06:12 14:44 WBC RBC Hgb Hct MCV MCH MCHC RDW Plt Count Seg Neutrophils % Lymphocytes % Monocytes % Eosinophils % Basophils % Absolute Neutrophils Absolute Lymphocytes Absolute Monocytes Absolute Eosinophils Absolute Basophils Sodium 144.6 Potassium 3.8 Chloride 110 H Carbon Dioxide 17 L Anion Gap 18 BUN 8 Creatinine 0.72 Est GFR ( Amer) > 60 Est GFR (Non-Af Amer) > 60 Glucose 97 Calcium 9.0 Magnesium 2.2 Total Bilirubin AST ALT Alkaline Phosphatase Total Protein Albumin Serum HCG, Qual Urine Color STRAW Urine Appearance CLEAR Urine pH 7.0 Ur Specific [place] 1.002 Urine Protein NEGATIVE Urine Glucose (UA) NEGATIVE Urine Ketones NEGATIVE Urine Blood NEGATIVE Urine Nitrite NEGATIVE Ur Leukocyte Esterase NEGATIVE Urine RBC (Auto) 0 Impressions: Head CT 09/19/18 14:25 IMPRESSION: NO ACUTE INTRACRANIAL IMAGING FINDINGS. EVIDENCE OF ACUTE STROKE: NO. Assessment and Plan - Diagnosis (1) Overdose Qualifiers: Encounter type: initial encounter Injury intent: intentional self-harm Qualified Code(s): T50.902A - Poisoning by unspecified drugs, medicaments and biological substances, intentional self-harm, initial encounter Is this a current diagnosis for this admission?: Yes Plan: This was an intentional overdose with multiple medications. This is not the first overdose for this patient. The patient is currently on involuntary commitment. She is exhibiting prolonged QTC and widened QRS complexes. She will be monitored on telemetry in the ICU. She will have repeat EKG later this evening as well as an EKG in the running. Will monitor for ongoing changes in EKG as well as arrhythmias. She did receive intravenous sodium bicarbonate for the prolonged QRS complex. (2) Acute alcohol intoxication Qualifiers: Complication of substance-induced condition: uncomplicated Qualified Code(s): F10.920 - Alcohol use, unspecified with intoxication, uncomplicated Is this a current diagnosis for this admission?: Yes Plan: It is somewhat difficult to know if her encephalopathy is completely alcohol driven, a manifestation of the drug overdose or attributable to her underlying mental health disorder. It is likely a combination of multiple factors. I would not expect the patient to have alcohol withdrawal seizures with her serum alcohol at 166. It is more likely related to the medications or the combination of alcohol with her medications. She will be given IV fluids as well as thiamine and folic acid. She will be on an H2 micha for gastric protection. She will also have scheduled as well as as needed benzodiazepines. If the patient develops significant alcohol withdrawal she may require intubation and sedation. (3) Seizure Is this a current diagnosis for this admission?: Yes Plan: The seizures are likely due to the alcohol and polypharmacy overdose. We will admit the patient. I will place her on scheduled benzodiazepine therapy with larger doses available if needed. If the patient continues to seize, she might benefit from intubation and sedation with the use of propofol. (4) Encephalopathy Is this a current diagnosis for this admission?: Yes Plan: Secondary to acute alcohol intoxication (5) Depression Qualifiers: Depression Type: unspecified Qualified Code(s): F32.9 - Major depressive disorder, single episode, unspecified Is this a current diagnosis for this admission?: Yes Plan: It is difficult to tell and the patient could not provide details. She is on a regimen that would be consistent with bipolar disorder but at the same time as a prescription for dexamphetamine. She did admit that she is an extremely anxious person. - Time Time Spent with patient: 35 or more minutes Medications reviewed and adjusted accordingly: Yes Anticipated discharge: Other - Most likely an inpatient psychiatric facility. - Inpatient Certification Based on my medical assessment, after consideration of the patient's comorbidities, presenting symptoms, or acuity I expect that the services needed warrant INPATIENT care.: Yes I certify that my determination is in accordance with my understanding of Medicare's requirements for reasonable and necessary INPATIENT services [42 CFR 412.3e].: Yes Medical Necessity: Need Close Monitoring Due to Risk of Patient Decompensation, Need For IV Fluids, Need For Continuous Telemetry Monitoring, Risk of Complication if Not Cared For in Hospital Post Hospital Care: D/C Feather Separator Documentation
[2018-09-19] MEDS: LORAZEPAM INJ 2 MG/1 ML VIAL IV PRN (20:35)
[2018-09-19] MEDS ORDERED: DIAZEPAM INJ 10 MG/2 ML DISP.SYRIN ONE (20:43)
[2018-09-19] MEDS ORDERED: OLANZAPINE INJ/PF 10 MG SDV IM PRN (20:56)
[2018-09-19] MEDS: NORMAL SALINE 1000 ML 1,000 ML IV PRN (21:30)
[2018-09-19] MEDS: FAMOTIDINE 20 MG TABLET PO SCH (21:30)
[2018-09-19] MEDS ORDERED: DIAZEPAM INJ 10 MG/2 ML DISP.SYRIN IV ONE (21:30)
--- NOTE | 2018-09-19 23:31 | EKG REPORT ---
SEVERITY:- ABNORMAL ECG - SINUS TACHYCARDIA BORDERLINE PROLONGED QT INTERVAL IRBBB : Confirmed by: Lubna Gilliam MD 19-Sep-2018 23:30:35
--- NOTE | 2018-09-19 23:31 | EKG REPORT ---
SEVERITY:- OTHERWISE NORMAL ECG - SINUS TACHYCARDIA : Confirmed by: Lubna Gilliam MD 19-Sep-2018 23:30:43
[2018-09-19] MEDS: LORAZEPAM INJ 2 MG/1 ML VIAL IV SCH (23:33)
[2018-09-20] MEDS ORDERED: HYDRALAZINE HCL INJ/PF 20 MG/1 ML SDV ONE (00:47)
[2018-09-20] MEDS: LORAZEPAM INJ 2 MG/1 ML VIAL IV PRN ×3 (02:45→15:20)
[2018-09-20] MEDS ORDERED: HYDRALAZINE HCL INJ/PF 20 MG/1 ML SDV IV PRN (03:48)
[2018-09-20 05:50] LABS: ALANINE AMINOTRANSFERASE 20 U/L (9-52); ALBUMIN 3.6 g/dL (3.5-5.0); ALKALINE PHOSPHATASE 61 U/L (38-126); ANION GAP 12 (5-19); ASPARTATE AMINO TRANSFERASE 28 U/L (14-36); BILIRUBIN,DIRECT 0.3 mg/dL (0.0-0.4); BILIRUBIN,TOTAL 0.9 mg/dL (0.2-1.3); BLOOD UREA NITROGEN 5 mg/dL (7-20); CALCIUM 8.9 mg/dL (8.4-10.2); CARBON DIOXIDE 23 mmol/L (22-30); CHLORIDE 106 mmol/L (98-107); GLUCOSE 86 mg/dL (75-110); POTASSIUM 3.7 mmol/L (3.6-5.0); SODIUM 140.7 mmol/L (137-145); TOTAL PROTEIN 6.4 g/dL (6.3-8.2)
[2018-09-20 06:40] LABS: CREATINE KINASE MB 4.18 ng/mL (<4.55)
[2018-09-20 06:42] LABS: TROPONIN I < 0.012 ng/mL
[2018-09-20] MEDS: LORAZEPAM INJ 2 MG/1 ML VIAL IV SCH ×2 (06:59→11:10)
--- NOTE | 2018-09-20 07:29 | EKG REPORT ---
SEVERITY:- BORDERLINE ECG - SINUS TACHYCARDIA BORDERLINE RIGHT AXIS DEVIATION BORDERLINE PROLONGED QT INTERVAL NONSPECIFIC ST-T CHANGES- INFERIOR-LATERAL LEADS : Confirmed by: Tobias Cedeno MD 20-Sep-2018 07:29:21
[2018-09-20] MEDS: FOLIC ACID 1 MG TABLET PO SCH (11:04)
[2018-09-20] MEDS: ENOXAPARIN SODIUM INJ 30 MG/0.3 ML DISP.SYRIN SUBCUT SCH (11:05)
[2018-09-20] MEDS: THIAMINE HCL 100 MG TABLET PO SCH (11:06)
[2018-09-20] MEDS: FAMOTIDINE 20 MG TABLET PO SCH ×2 (11:06→22:13)
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
--- NOTE | 2018-09-20 12:04 | PSYCHOLOGICAL NOTE ---
Psych Note - Psych Note Date seen by psych provider: 09/20/18 Psych Note: Attending Hospitalist noted QTC and QS still off, no seizures since last night, being prescribed Ativan for seizures and Alcohol Withdrawal and bicarb being done again. Father at bedside. He was made aware of plan of care and full IVC but medical being primary concern right now. He stated "she has done this before, doesn't drink all the time but when she does goes all out, has been hospitalized before and his concern is her being doped up." He stated her psychiatrist is Dr. Meza who just hands out medication and she needs a new psychiatrist. Diagnosis: SI attempt via OD Alcohol Intoxication Unspecified Depressive Disorder by Hx Alcohol Use (Current and History) No medication recommendations yet. However do not restart Wellbutrin (current medication) or Adderall (past medication). Want to allow for continued medical stabilization. Attending Hospitalist inquired about medications due to use of PRN Ativan. Medication recommendations made by the psychiatric medical provider, Dr Delfina dominguez MD., includes: Discontinue Ativan and benzos as they may be increasing agitation/aggression Add Vistaril 50MG IM every 8 hours Add Clonidine Patch every 24 hours Impression/Plan: Recommendation to complete full IVC (patient had only been a 24 Hour IVC Petition). She had alcohol intoxication and OD on a handful of pills. Yesterday she ended up having 3 seizure like activity incidences and subsequently got admitted to ICU/hospitalist services. After her third seizure she had erratic and bizarre behavior (trying to stand/jump on bed, laughing inappropriately, unable to carry on dialogue conversation). She required physical and chemical restraints. She had a previous OD attempt with alcohol intoxication in March 2018 and was [facility]. Consulted with Dr. Pineda regarding the management and care of patient. Attending Hospitalist made aware of recommendations.
--- NOTE | 2018-09-20 13:10 | EKG REPORT ---
SEVERITY:- ABNORMAL ECG - SINUS TACHYCARDIA LEFT POST FASCICULAR BLOCK. NONSPECIFIC ST-T CHANGES- INFERIOR-LATERAL LEADS : Confirmed by: Tobias Cedeno MD 20-Sep-2018 13:09:32
[2018-09-20] MEDS: NORMAL SALINE 1000 ML 1,000 ML IV PRN (16:29)
[2018-09-20] MEDS ORDERED: LORAZEPAM INJ 2 MG/1 ML VIAL IV PRN (16:56)
[2018-09-20] MEDS ORDERED: CLONIDINE 0.1 MG/24 HR PATCH.TDWK TD SCH (18:00)
[2018-09-20] MEDS ORDERED: LORAZEPAM INJ 2 MG/1 ML VIAL ONE (18:12)
[2018-09-20] MEDS ORDERED: LORAZEPAM INJ 2 MG/1 ML VIAL IV ONE (19:00)
[2018-09-20] MEDS: HYDROXYZINE PAMOATE 50 MG CAPSULE PO SCH (22:14)
[2018-09-20] MEDS: HYDROXYZINE HCL INJ 50 MG/1 ML VIAL IM PRN (23:11)
[2018-09-21] MEDS: NORMAL SALINE 1000 ML 1,000 ML IV PRN ×3 (01:10→16:41)
[2018-09-21 05:46] LABS: HEMATOCRIT 33.7 % (36.0-47.0); HEMOGLOBIN 11.7 g/dL (12.0-15.5); MEAN CORPUSCULAR HEMOGLOBIN 30.3 pg (27.0-33.4); MEAN CORPUSCULAR HGB CONC 34.6 g/dL (32.0-36.0); MEAN CORPUSCULAR VOLUME 88 fl (80-97); PLATELET COUNT 330 10^3/uL (150-450); RED BLOOD COUNT 3.84 10^6/uL (3.72-5.28); RED CELL DISTRIBUTION WIDTH 12.7 % (11.5-14.0); WHITE BLOOD COUNT 8.8 10^3/uL (4.0-10.5)
[2018-09-21] MEDS: HYDROXYZINE HCL INJ 50 MG/1 ML VIAL IM PRN (05:57)
[2018-09-21 06:04] LABS: ANION GAP 13 (5-19); BLOOD UREA NITROGEN 5 mg/dL (7-20); CALCIUM 8.9 mg/dL (8.4-10.2); CARBON DIOXIDE 20 mmol/L (22-30); CHLORIDE 106 mmol/L (98-107); GLUCOSE 79 mg/dL (75-110); POTASSIUM 3.9 mmol/L (3.6-5.0); SODIUM 138.8 mmol/L (137-145)
[2018-09-21] MEDS: HYDROXYZINE PAMOATE 50 MG CAPSULE PO SCH ×3 (07:23→21:28)
--- NOTE | 2018-09-21 07:51 | EKG REPORT ---
SEVERITY:- ABNORMAL ECG - SINUS TACHYCARDIA BORDERLINE PROLONGED QT INTERVAL NONSPECIFIC ST-T CHANGES- INFERIOR LEADS : Confirmed by: Tobias Cedeno MD 21-Sep-2018 07:51:28
[2018-09-21] MEDS: FAMOTIDINE 20 MG TABLET PO SCH ×2 (09:27→21:28)
[2018-09-21] MEDS: FOLIC ACID 1 MG TABLET PO SCH (09:27)
[2018-09-21] MEDS: THIAMINE HCL 100 MG TABLET PO SCH (09:27)
[2018-09-21] MEDS: ENOXAPARIN SODIUM INJ 30 MG/0.3 ML DISP.SYRIN SUBCUT SCH (09:28)
--- NOTE | 2018-09-21 10:38 | PDOC PROGRESS REPORT ---
Subjective Progress Note for:: 09/20/18 Subjective:: Patient is still somewhat lethargic but arouses to stimulus. She still is nonsensical regarding meaningful communication. Her father is at the bedside. Reason For Visit: POLYPHARMACY INTENTIONAL OVERDOSE Physical Exam Vital Signs: Temp Pulse Resp BP Pulse Ox 98.4 F 121 H 24 H 170/96 H 98 09/20/18 12:00 09/20/18 12:00 09/20/18 12:00 09/20/18 12:00 09/20/18 12:00 Intake & Output 09/19/18 09/20/18 09/21/18 06:59 06:59 06:59 Intake Total 2050 Output Total 2150 900 Balance -100 -900 Weight 45.4 kg 57.3 kg General appearance: PRESENT: mild distress, well-developed, other Head exam: PRESENT: atraumatic, normocephalic - Very confused Eye exam: PRESENT: conjunctiva pink. ABSENT: scleral icterus Ear exam: PRESENT: normal external ear exam Mouth exam: PRESENT: dry mucosa Respiratory exam: PRESENT: clear to auscultation doris, symmetrical. ABSENT: accessory muscle use, rales, rhonchi, tachypnea, unlabored, wheezes Cardiovascular exam: PRESENT: tachycardia GI/Abdominal exam: PRESENT: normal bowel sounds, soft. ABSENT: distended, tenderness Rectal exam: PRESENT: deferred Gentrourinary exam: ABSENT: indwelling catheter Extremities exam: ABSENT: joint swelling, pedal edema Musculoskeletal exam: PRESENT: normal inspection Neurological exam: PRESENT: awake, oriented to person. ABSENT: alert - Somewhat lethargic, oriented to place, oriented to time, oriented to situation Psychiatric exam: PRESENT: flat affect. ABSENT: agitated, anxious Focused psych exam: ABSENT: restlessness Results Laboratory Results: 09/19/18 06:00 09/20/18 04:07 09/19/18 09/20/18 14:44 04:07 Sodium 144.6 140.7 Potassium 3.8 3.7 Chloride 110 H 106 Carbon Dioxide 17 L 23 Anion Gap 18 12 BUN 8 5 L Creatinine 0.72 0.60 Est GFR ( Amer) > 60 > 60 Est GFR (Non-Af Amer) > 60 > 60 Glucose 97 86 Calcium 9.0 8.9 Magnesium 1.8 Total Bilirubin 0.9 AST 28 ALT 20 Alkaline Phosphatase 61 Total Protein 6.4 Albumin 3.6 09/20/18 09/20/18 06:05 06:05 Creatine Kinase < 20 L CK-MB (CK-2) 4.18 Troponin I < 0.012 Impressions: Head CT 09/19/18 14:25 IMPRESSION: NO ACUTE INTRACRANIAL IMAGING FINDINGS. EVIDENCE OF ACUTE STROKE: NO. Assessment and Plan - Diagnosis (1) Overdose Qualifiers: Encounter type: initial encounter Injury intent: intentional self-harm Qualified Code(s): T50.902A - Poisoning by unspecified drugs, medicaments and biological substances, intentional self-harm, initial encounter Is this a current diagnosis for this admission?: Yes Plan: This was an intentional overdose with multiple medications. This is not the first overdose for this patient. The patient is currently on involuntary commitment. She is exhibiting prolonged QTC and widened QRS complexes. She will be monitored on telemetry in the ICU. She will have repeat EKG later this evening as well as an EKG in the running. Will monitor for ongoing changes in EKG as well as arrhythmias. She did receive intravenous sodium bicarbonate for the prolonged QRS complex. 09/20/2017-the patient's QRS is now under 100. The QTc is better. The patient is stable enough for IMCU. She will need to stay on telemetry. She is still at risk for DTs from her intoxication. I would suggest EKGs every 12 hours for the next day. She remains on involuntary commitment. (2) Acute alcohol intoxication Qualifiers: Complication of substance-induced condition: uncomplicated Qualified Code(s): F10.920 - Alcohol use, unspecified with intoxication, uncomplicated Is this a current diagnosis for this admission?: Yes Plan: It is somewhat difficult to know if her encephalopathy is completely alcohol driven, a manifestation of the drug overdose or attributable to her underlying mental health disorder. It is likely a combination of multiple factors. I would not expect the patient to have alcohol withdrawal seizures with her serum alcohol at 166. It is more likely related to the medications or the combination of alcohol with her medications. She will be given IV fluids as well as thiamine and folic acid. She will be on an H2 micha for gastric protection. She will also have scheduled as well as as needed benzodiazepines. If the patient develops significant alcohol withdrawal she may require intubation and sedation. 09/20/2018-for her agitation her psychiatrist as recommended Vistaril and clonidine. He feels the scheduled Ativan could be making the patient agitated. I will still leave the as needed lorazepam available for probable DTs/alcohol withdrawal. (3) Seizure Is this a current diagnosis for this admission?: Yes Plan: The seizures are likely due to the alcohol and polypharmacy overdose. We will admit the patient. I will place her on scheduled benzodiazepine therapy with larger doses available if needed. If the patient continues to seize, she might benefit from intubation and sedation with the use of propofol. 09/20/2018-no further evidence of seizures. I do not believe that the patient requires antiepileptic medication at this time. Currently treating the seizures on an as-needed basis. (4) Encephalopathy Is this a current diagnosis for this admission?: Yes Plan: Secondary to acute alcohol intoxication 09/20/2018-patient is still quite confused. She has difficulty expressing thoughts. Attention span and focus are markedly reduced. Psych contacted the patient's primary psychiatrist. She gets agitated at times and was trying to discover the best agent to use. He recommended discontinuing the scheduled benzodiazepines and starting Vistaril 50 mg every 8 hours. He will be offered by mouth and if she declines or is unable we will give it intramuscularly. In addition we will place a 0.1 clonidine patch and change it every 7 days. We will need to monitor her blood pressure. I will leave the as needed lorazepam dosing as this is for seizure only. 09/20/2018-still a prominent factor in the patient's status. I was hoping it would clear somewhat today but apparently it has not. Continue to monitor. Appreciate psychiatry input. (5) Depression Qualifiers: Depression Type: unspecified Qualified Code(s): F32.9 - Major depressive disorder, single episode, unspecified Is this a current diagnosis for this admission?: Yes Plan: It is difficult to tell and the patient could not provide details. She is on a regimen that would be consistent with bipolar disorder but at the same time as a prescription for dexamphetamine. She did admit that she is an extremely anxious person. 09/20/2018-at this point it is impossible to determine her status due to the acute effects of the alcohol and overdose. As the patient improves then psychiatry could manage her medications. The majority of work will likely be done at an inpatient psychiatric facility. (6) EKG abnormality Is this a current diagnosis for this admission?: Yes Plan: 09/20/2018-the patient exhibited a prolonged QTC yesterday but this has returned to normal. Unfortunately her QRS was lengthened. It was up to 104. She did receive serum bicarbonate in the emergency department. The latest EKG reveals it is down to 98. Because it is less than 100 I will defer from any further sodium bicarbonate. If it extends then 1 to 2 mEq/kg body weight is the suggested bolus dose. We will continue serial EKGs. - Time Time Spent with patient: 15-24 minutes Medications reviewed and adjusted accordingly: Yes Anticipated discharge: Other
--- NOTE | 2018-09-21 15:54 | PSYCHOLOGICAL NOTE ---
Psych Note - Psych Note Date seen by psych provider: 09/21/18 Time seen by psych provider: 12:00 - 1215 Psych Note: Reason for Consult: Intentional Overdose Check in conducted with patient: patient continues to have difficultly with evaluation. Patient is able to comm unicate clearer but frequently falls asleep during answering questions. Patient's father is concerned the patient's main issue is alcohol and the only time she has an issue is when she drinks. He reports she can go months without drinking and then will drink without stopping and then overdoses. He is concnered the inpatient psychiatric treatment will do nothing but get her "doped up" and that doesn't address her drinking. Diagnosis: SI attempt via OD Alcohol Intoxication Unspecified Depressive Disorder by Hx Alcohol Use (Current and History) No medication recommendations yet. However do not restart Wellbutrin (current medication) or Adderall (past medication). Want to allow for continued medical stabilization. Attending Hospitalist inquired about medications due to use of PRN Ativan. Medication recommendations made by the psychiatric medical provider, Dr Minerva MD., includes: Discontinue Ativan and benzos as they may be increasing agitation/aggression Add Vistaril 50MG IM every 8 hours Add Clonidine Patch every 24 hours Impression/Plan: Recommendation to complete full IVC (patient had only been a 24 Hour IVC Petition). She had alcohol intoxication and OD on a handful of pills. Yesterday she ended up having 3 seizure like activity incidences and subsequently got admitted to ICU/hospitalist services. After her third seizure she had erratic and bizarre behavior (trying to stand/jump on bed, laughing inappropriately, unable to carry on dialogue conversation). She required physical and chemical restraints. She had a previous OD attempt with alcohol intoxication in March 2018 and was hospitalized at [facility]. Consulted with Dr. Pineda regarding the management and care of patient. Attending Hospitalist made aware of recommendations.
--- NOTE | 2018-09-21 16:29 | PDOC PROGRESS REPORT ---
Subjective Progress Note for:: 09/21/18 Subjective:: This is a 23 years old female patient with past medical history of major depression and on multiple antipsychotic medications which includes Lunesta, Latuda, Wellbutrin, Seroquel, Xanax and dextroamphetamine brought to hospital for acute encephalopathy after she overdosed herself with her psych medication while she is being intoxicated. Patient witnessed to have 3 episodes of grand mal seizure and she responded well to IV Ativan. Of note patient had had similar episode of intentional overdose previously. Patient IVCed and being followed by psych. No more seizure activity on the floor. Morning I seen patient resting in bed. She is awake alert but still she has some disorientation on and off. From my assessment patient may need inpatient psych iatric treatment. Reason For Visit: POLYPHARMACY INTENTIONAL OVERDOSE Physical Exam Vital Signs: Temp Pulse Resp BP Pulse Ox 98.0 F 107 H 20 133/88 H 97 09/21/18 03:24 09/21/18 14:00 09/21/18 03:24 09/21/18 03:24 09/21/18 03:24 Intake & Output 09/20/18 09/21/18 09/22/18 06:59 06:59 06:59 Intake Total 3050 1000 965 Output Total 2150 2135 Balance 900 -1135 965 Weight 57.3 kg 50.8 kg General appearance: PRESENT: no acute distress Head exam: PRESENT: atraumatic Eye exam: PRESENT: conjunctiva pink Neck exam: ABSENT: carotid bruit, JVD, lymphadenopathy, thyromegaly Respiratory exam: PRESENT: clear to auscultation doris. ABSENT: rales, rhonchi, wheezes Cardiovascular exam: PRESENT: RRR. ABSENT: diastolic murmur, rubs, systolic murmur GI/Abdominal exam: PRESENT: normal bowel sounds, soft. ABSENT: distended, guarding, mass, organolmegaly, rebound, tenderness Neurological exam: PRESENT: alert, altered, awake Results Laboratory Results: 09/21/18 04:42 09/21/18 04:42 09/21/18 09/21/18 04:42 04:42 WBC 8.8 RBC 3.84 Hgb 11.7 L Hct 33.7 L MCV 88 MCH 30.3 MCHC 34.6 RDW 12.7 Plt Count 330 Sodium 138.8 Potassium 3.9 Chloride 106 Carbon Dioxide 20 L Anion Gap 13 BUN 5 L Creatinine 0.63 Est GFR ( Amer) > 60 Est GFR (Non-Af Amer) > 60 Glucose 79 Calcium 8.9 Magnesium 1.8 09/20/18 09/20/18 06:05 06:05 Creatine Kinase < 20 L CK-MB (CK-2) 4.18 Troponin I < 0.012 Impressions: Head CT 09/19/18 14:25 IMPRESSION: NO ACUTE INTRACRANIAL IMAGING FINDINGS. EVIDENCE OF ACUTE STROKE: NO. Assessment and Plan - Diagnosis (1) Acute encephalopathy Is this a current diagnosis for this admission?: Yes Plan: Multifactorial causes including drug overdose and alcohol intoxication. Currently patient showing some improvement. Her restraints removed. She is only on chemical restraint. (2) Intentional drug overdose Qualifiers: Encounter type: subsequent encounter Qualified Code(s): T50.902D - Poisoning by unspecified drugs, medicaments and biological substances, intentional self-harm, subsequent encounter Is this a current diagnosis for this admission?: Yes Plan: Patient has previous history of intentional drug overdose. Patient is being followed by psych. (3) New onset seizure Is this a current diagnosis for this admission?: Yes Plan: Most probably induced by cocktail of psychiatric medication taken with alcohol. Currently patient is seizure-free. She is not started on antiseizure medication. (4) Alcohol intoxication Is this a current diagnosis for this admission?: Yes Plan: Patient is counseled and encourage to remain sober and also she is told the consequence of mixing alcohol with antipsychotic medications. (5) Major depression Is this a current diagnosis for this admission?: Yes Plan: Patient may need inpatient psych facility treatment.
[2018-09-22] MEDS: NORMAL SALINE 1000 ML 1,000 ML IV PRN ×4 (00:23→23:54)
[2018-09-22] MEDS: HYDROXYZINE PAMOATE 50 MG CAPSULE PO SCH ×3 (06:32→22:22)
--- NOTE | 2018-09-22 07:40 | EKG REPORT ---
SEVERITY:- ABNORMAL ECG - SINUS RHYTHM INCOMPLETE RIGHT BUNDLE BRANCH BLOCK DIFFUSE NONSPECIFIC ST CHANGES.PERSISTENT. : Confirmed by: Tobias Cedeno MD 22-Sep-2018 07:40:13
[2018-09-22] MEDS: ENOXAPARIN SODIUM INJ 30 MG/0.3 ML DISP.SYRIN SUBCUT SCH (09:52)
[2018-09-22] MEDS: FAMOTIDINE 20 MG TABLET PO SCH ×2 (09:52→22:22)
[2018-09-22] MEDS: FOLIC ACID 1 MG TABLET PO SCH (09:52)
[2018-09-22] MEDS: THIAMINE HCL 100 MG TABLET PO SCH (09:52)
[2018-09-22] MEDS: OLANZAPINE 5 MG TABLET PO PRN ×2 (12:04→22:25)
--- NOTE | 2018-09-22 13:31 | PDOC PROGRESS REPORT ---
Subjective Progress Note for:: 09/22/18 Subjective:: Patient seen resting in bed comfortably. Today patient's more awake alert and conversant. She is not in pain or distress. He is awaiting psych reevaluation. Reason For Visit: POLYPHARMACY INTENTIONAL OVERDOSE Physical Exam Vital Signs: Temp Pulse Resp BP Pulse Ox 98.8 F 97 14 117/67 100 09/22/18 11:59 09/22/18 11:59 09/22/18 11:59 09/22/18 11:59 09/22/18 11:59 Intake & Output 09/21/18 09/22/18 09/23/18 06:59 06:59 06:59 Intake Total 1000 3583 1000 Output Total 2135 1000 Balance -1135 2583 1000 Weight 50.8 kg 50.6 kg General appearance: PRESENT: no acute distress, well-developed, well-nourished Head exam: PRESENT: atraumatic, normocephalic Eye exam: PRESENT: conjunctiva pink, EOMI, PERRLA. ABSENT: scleral icterus Ear exam: PRESENT: normal external ear exam Mouth exam: PRESENT: moist, tongue midline Neck exam: ABSENT: carotid bruit, JVD, lymphadenopathy, thyromegaly Respiratory exam: PRESENT: clear to auscultation doris. ABSENT: rales, rhonchi, wheezes Cardiovascular exam: PRESENT: RRR. ABSENT: diastolic murmur, rubs, systolic murmur Pulses: PRESENT: normal dorsalis pedis pul Vascular exam: PRESENT: normal capillary refill GI/Abdominal exam: PRESENT: normal bowel sounds, soft. ABSENT: distended, guarding, mass, organolmegaly, rebound, tenderness Rectal exam: PRESENT: deferred Extremities exam: PRESENT: full ROM. ABSENT: calf tenderness, clubbing, pedal edema Neurological exam: PRESENT: alert, awake, oriented to person, oriented to place, oriented to time, oriented to situation, CN II-XII grossly intact. ABSENT: motor sensory deficit Psychiatric exam: PRESENT: appropriate affect, normal mood. ABSENT: homicidal ideation, suicidal ideation Skin exam: PRESENT: dry, intact, warm. ABSENT: cyanosis, rash Results Laboratory Results: 09/21/18 04:42 09/21/18 04:42 09/20/18 09/20/18 06:05 06:05 Creatine Kinase < 20 L CK-MB (CK-2) 4.18 Troponin I < 0.012 Impressions: Head CT 09/19/18 14:25 IMPRESSION: NO ACUTE INTRACRANIAL IMAGING FINDINGS. EVIDENCE OF ACUTE STROKE: NO. Assessment and Plan - Diagnosis (1) Acute encephalopathy Is this a current diagnosis for this admission?: Yes Plan: Multifactorial causes including drug overdose and alcohol intoxication. Currently patient showing some improvement. Her restraints removed. She is only on chemical restraint. (2) Intentional drug overdose Qualifiers: Encounter type: subsequent encounter Qualified Code(s): T50.902D - Poisoning by unspecified drugs, medicaments and biological substances, intentional self-harm, subsequent encounter Is this a current diagnosis for this admission?: Yes Plan: Patient has previous history of intentional drug overdose. Patient is being followed by psych. (3) New onset seizure Is this a current diagnosis for this admission?: Yes Plan: Most probably induced by cocktail of psychiatric medication taken with alcohol. Currently patient is seizure-free. She is not started on antiseizure medication. (4) Alcohol intoxication Is this a current diagnosis for this admission?: Yes Plan: Patient is counseled and encourage to remain sober and also she is told the consequence of mixing alcohol with antipsychotic medications. (5) Major depression Is this a current diagnosis for this admission?: Yes Plan: Patient may need inpatient psych facility treatment.
[2018-09-23] MEDS: HYDROXYZINE PAMOATE 50 MG CAPSULE PO SCH ×3 (05:58→21:10)
[2018-09-23] MEDS: ENOXAPARIN SODIUM INJ 30 MG/0.3 ML DISP.SYRIN SUBCUT SCH (09:18)
[2018-09-23] MEDS: FAMOTIDINE 20 MG TABLET PO SCH ×2 (09:22→21:10)
[2018-09-23] MEDS: THIAMINE HCL 100 MG TABLET PO SCH (09:22)
[2018-09-23] MEDS: FOLIC ACID 1 MG TABLET PO SCH (09:22)
--- NOTE | 2018-09-23 14:16 | PDOC DISCHARGE SUMMARY ---
General - Admit/Disc Date/PCP Admission Date/Primary Care Provider: 09/19/18 17:56 Discharge Date: 09/23/18 - Discharge Diagnosis (1) Acute encephalopathy Is this a current diagnosis for this admission?: Yes (2) Intentional drug overdose Is this a current diagnosis for this admission?: Yes (3) New onset seizure Is this a current diagnosis for this admission?: Yes (4) Alcohol intoxication Is this a current diagnosis for this admission?: Yes (5) Major depression Is this a current diagnosis for this admission?: Yes - Additional Information Resuscitation Status: Full Code Home Medications: Alprazolam [Xanax Xr] 2 mg PO Q12HP PRN 09/19/18 Bupropion HCl [Wellbutrin Xl 300mg 24hr Tablet] 300 mg PO DAILY MDD FILLED 07/13 FOR 30 DAY SUPPLY 09/19/18 Dextroamphetamine/Amphetamine [Dextroamp-Amphet ER 30 mg Cap] 30 mg PO BID 09/19/18 Eszopiclone 3 mg PO HSP PRN 09/19/18 Ethinyl Estradiol/Drospirenone [Drospirenone-Ee 3-0.02 mg Tab] 1 tab PO DAILY 09/19/18 Lurasidone HCl [Latuda] 20 mg PO DAILY 09/19/18 Lurasidone HCl [Latuda] 120 mg PO DAILY 09/19/18 Nitrofurantoin Macrocrystal [Macrodantin] 100 mg PO BID MDD FILLED 09/14 FOR 5 DAY SUPPLY 09/19/18 Phenazopyridine HCl [Pyridium 200 mg Tablet] 200 mg PO TIDP PRN 09/19/18 Quetiapine Fumarate [Seroquel 100 mg Tablet] 100 mg PO Q12 09/19/18 History of Present Illness History of Present Illness: ANAYELI STANLYE is a 23 year old female on multiple psychiatric medications. She has a history of alcohol abuse. This in fact is her third overdose according to the patient. Evidently the patient was feeling and depressed and drank a bottle of wine last night. She then proceeded to poor all of her psychiatric medications onto the bed and took a handful of pills. On evaluation at the hospital she was given activated charcoal. Serum alcohol was 166. Her prescribed medications include Lunesta, Latuda, Wellbutrin, Seroquel, Xanax and dextroamphetamine. During her evaluation she experienced 2 grand mal seizures. They seem to respond well to 2 mg of Ativan given by intravenous. After my encounter with the patient she experienced a third seizure and was given lo razepam once again. Poison control was contacted. The patient needs to be monitored continuously with serial EKGs. She did exhibit a transient widening of the QRS interval with a peak at 500 and it is now down to 441. Unfortunately her QRS complex continues to increase. On admission it was 94, second EKG it was 130 EKG it was 102. A fourth EKG is ordered for later tonight. she was referred to the hospitalist service for admission. She was also seen by psychiatry and is currently on an involuntary commitment Hospital Course Hospital Course: This is a 23 years old female patient with past medical history of major depression and on multiple antipsychotic medications which includes Lunesta, Latuda, Wellbutrin, Seroquel, Xanax and dextroamphetamine brought to hospital for acute encephalopathy after she overdosed herself with her psych medication while she is being intoxicated. Patient witnessed to have 3 episodes of grand mal seizure and she responded well to IV Ativan. Of note patient had had similar episode of intentional overdose previously. Patient IVCed and being followed by psych. No more seizure activity on the floor. Patient seen and examined at bedside. She is awake alert oriented. She is not in pain or distr ess. Her vital signs are stable and blood works are stable. Patient is stable enough to be discharged to inpatient psychiatric facility. Physical Exam Vital Signs: Temp Pulse Resp BP Pulse Ox 97.9 F 81 14 122/67 99 09/23/18 07:16 09/23/18 07:16 09/23/18 07:16 09/23/18 07:16 09/23/18 07:16 Intake & Output 09/22/18 09/23/18 09/24/18 06:59 06:59 06:59 Intake Total 3583 3818 1000 Output Total 1000 650 Balance 2583 3168 1000 Weight 50.6 kg 50.5 kg General appearance: PRESENT: no acute distress Head exam: PRESENT: atraumatic Eye exam: PRESENT: conjunctiva pink Neck exam: ABSENT: carotid bruit, JVD, lymphadenopathy, thyromegaly Respiratory exam: PRESENT: clear to auscultation doris. ABSENT: rales, rhonchi, wheezes Cardiovascular exam: PRESENT: RRR. ABSENT: diastolic murmur, rubs, systolic murmur GI/Abdominal exam: PRESENT: normal bowel sounds, soft. ABSENT: distended, guarding, mass, organolmegaly, rebound, tenderness Neurological exam: PRESENT: awake, oriented to person, oriented to place Results Laboratory Results: 09/21/18 04:42 09/21/18 04:42 09/20/18 09/20/18 06:05 06:05 Creatine Kinase < 20 L CK-MB (CK-2) 4.18 Troponin I < 0.012 Impressions: Head CT 09/19/18 14:25 IMPRESSION: NO ACUTE INTRACRANIAL IMAGING FINDINGS. EVIDENCE OF ACUTE STROKE: NO. Qualifiers - * PATIENT BEING DISCHARGED WITH ANY OF THE FOLLOWING DIAGNOSIS: No Acute Heart Failure Is this a Heart Failure Patient?: No
[2018-09-24] MEDS: NORMAL SALINE 1000 ML 1,000 ML IV PRN ×2 (00:37→10:35)
[2018-09-24] MEDS: HYDROXYZINE PAMOATE 50 MG CAPSULE PO SCH ×3 (05:20→21:05)
--- NOTE | 2018-09-24 09:16 | PSYCHOLOGICAL NOTE ---
Psych Note - Psych Note Date seen by psych provider: 09/23/18 Time seen by psych provider: 15:37 - Evaluation from [id number]. Psych Note: Presenting Concern: IVC, OD of prescribed medications and alcohol intoxication, resulted in 3 seizures if not more and medical admittance first to ICU then floor. Today patient is awake. She has a bright affect. She is able to talk and carry on dialogue conversation. this is the best this clinician as seen patient since her arrival to ED. She admitted she has a problem with substance abuse and said she would do any treatment recommended. She stated she drinks "a handful of times a month" and admitted "it is all or nothing." She reported she did not remember overdosing. She admitted "it is a trend" reluctantly. She stated she sees Chantel Gallo at [facility] for medication management and is prescribed: Adderall XR, Xanax, Seroquel and Wellbutrin. She reported diagnoses of Clinical Depression and Bipolar. She denied being in therapy and said she need sit. She denied any of her treatment (outpatient and inpatient) being SA focused. Father at bedside and has been indicating natural support. He denied Bipolar diagnosis. He stated everywhere patient goes (outpatient provider, inpatient) all they do is prescribed a bunch of medication which is not helping. He reported patient's mother has MH issues. He mentioned a friend of a friend who knows therapist Elizabeth Elmore and was trying to get patient connected. Diagnosis: SI attempt via OD 303.90 (F10.20) Alcohol Use Disorder, Severe (seems to be binge related, patient reported drinking a handful of times a month, multiple times intoxicated and OD) 311 (F32.9) Unspecified Depressive Disorder by Hx Impression/Plan: Recommendation to maintain IVC. Patient was medically cleared today so referrals were sent out for IVC placement. She stated she would do treatment with SA as primary focus. May be able to link her with voluntary SA inpatient treatment via [facility]/others. Will coordinate the voluntary placement tomorrow if no acceptance under IVC. Consulted with Dr. Pineda regarding the management and care of patient. Attending Hospitalist made aware of recommendations.
--- NOTE | 2018-09-24 09:26 | PDOC PROGRESS REPORT ---
Subjective Progress Note for:: 09/23/18 Subjective:: No new complaint. Patient has remarkable improvement. Reason For Visit: POLYPHARMACY INTENTIONAL OVERDOSE Physical Exam Vital Signs: Temp Pulse Resp BP Pulse Ox 98.3 F 78 20 117/71 99 09/24/18 07:20 09/24/18 07:20 09/24/18 07:20 09/24/18 07:20 09/24/18 07:20 Intake & Output 09/23/18 09/24/18 09/25/18 06:59 06:59 06:59 Intake Total 3818 1986 Output Total 650 2400 Balance 3168 -912 Weight 50.5 kg 50.8 kg General appearance: PRESENT: no acute distress Respiratory exam: PRESENT: clear to auscultation doris. ABSENT: rales, rhonchi, wheezes Cardiovascular exam: PRESENT: RRR. ABSENT: diastolic murmur, rubs, systolic murmur GI/Abdominal exam: PRESENT: normal bowel sounds, soft. ABSENT: distended, guarding, mass, organolmegaly, rebound, tenderness Neurological exam: PRESENT: alert, awake Results Laboratory Results: 09/21/18 04:42 09/21/18 04:42 09/20/18 09/20/18 06:05 06:05 Creatine Kinase < 20 L CK-MB (CK-2) 4.18 Troponin I < 0.012 Impressions: Head CT 09/19/18 14:25 IMPRESSION: NO ACUTE INTRACRANIAL IMAGING FINDINGS. EVIDENCE OF ACUTE STROKE: NO. Assessment and Plan - Diagnosis (1) Acute encephalopathy Is this a current diagnosis for this admission?: Yes Plan: Resolved (2) Intentional drug overdose Qualifiers: Encounter type: subsequent encounter Qualified Code(s): T50.902D - Poisoning by unspecified drugs, medicaments and biological substances, intentional self-harm, subsequent encounter Is this a current diagnosis for this admission?: Yes Plan: Patient has previous history of intentional drug overdose. Patient is being followed by psych. (3) New onset seizure Is this a current diagnosis for this admission?: Yes Plan: Most probably induced by cocktail of psychiatric medication taken with alcohol. Currently patient is seizure-free. She is not started on antiseizure medication. (4) Alcohol intoxication Is this a current diagnosis for this admission?: Yes Plan: Patient is counseled and encourage to remain sober and also she is told the consequence of mixing alcohol with antipsychotic medications. (5) Major depression Is this a current diagnosis for this admission?: Yes Plan: Patient may need inpatient psych facility treatment.
[2018-09-24] MEDS: ENOXAPARIN SODIUM INJ 30 MG/0.3 ML DISP.SYRIN SUBCUT SCH (10:27)
[2018-09-24] MEDS: FAMOTIDINE 20 MG TABLET PO SCH ×2 (10:35→21:05)
[2018-09-24] MEDS: FOLIC ACID 1 MG TABLET PO SCH (10:35)
[2018-09-24] MEDS: THIAMINE HCL 100 MG TABLET PO SCH (10:35)
--- NOTE | 2018-09-24 15:39 | PDOC PROGRESS REPORT ---
Subjective Progress Note for:: 09/24/18 Subjective:: Patient seen awake alert and chatting with her friend. Since medically cleared for transfer to psychiatric facility for inpatient treatment. Psych associate financial planner working on it. Reason For Visit: POLYPHARMACY INTENTIONAL OVERDOSE Physical Exam Vital Signs: Temp Pulse Resp BP Pulse Ox 97.7 F 100 16 114/56 L 97 09/24/18 11:36 09/24/18 14:00 09/24/18 11:36 09/24/18 11:36 09/24/18 11:36 Intake & Output 09/23/18 09/24/18 09/25/18 06:59 06:59 06:59 Intake Total 3818 1987 1000 Output Total 650 2400 Balance 3168 -413 1000 Weight 50.5 kg 50.8 kg General appearance: PRESENT: no acute distress Head exam: PRESENT: atraumatic Eye exam: PRESENT: conjunctiva pink Respiratory exam: PRESENT: clear to auscultation doris. ABSENT: rales, rhonchi, wheezes Cardiovascular exam: PRESENT: RRR. ABSENT: diastolic murmur, rubs, systolic murmur Neurological exam: PRESENT: alert, awake, oriented to person, oriented to place, oriented to time, oriented to situation Results Laboratory Results: 09/21/18 04:42 09/21/18 04:42 09/20/18 09/20/18 06:05 06:05 Creatine Kinase < 20 L CK-MB (CK-2) 4.18 Troponin I < 0.012 Impressions: Head CT 09/19/18 14:25 IMPRESSION: NO ACUTE INTRACRANIAL IMAGING FINDINGS. EVIDENCE OF ACUTE STROKE: NO. Assessment and Plan - Diagnosis (1) Acute encephalopathy Is this a current diagnosis for this admission?: Yes Plan: Has resolved (2) Intentional drug overdose Qualifiers: Encounter type: subsequent encounter Qualified Code(s): T50.902D - Poisoning by unspecified drugs, medicaments and biological substances, intentional self-harm, subsequent encounter Is this a current diagnosis for this admission?: Yes Plan: Patient has previous history of intentional drug overdose. Patient is being followed by psych. (3) New onset seizure Is this a current diagnosis for this admission?: Yes Plan: Most probably induced by cocktail of psychiatric medication taken with alcohol. Currently patient is seizure-free. She is not started on antiseizure medication. (4) Alcohol intoxication Is this a current diagnosis for this admission?: Yes Plan: Patient is counseled and encourage to remain sober and also she is told the consequence of mixing alcohol with antipsychotic medications. (5) Major depression Is this a current diagnosis for this admission?: Yes Plan: Patient may need inpatient psych facility treatment.
[2018-09-25] MEDS: NORMAL SALINE 1000 ML 1,000 ML IV PRN ×2 (01:00→09:39)
[2018-09-25] MEDS: HYDROXYZINE PAMOATE 50 MG CAPSULE PO SCH ×2 (05:38→13:20)
[2018-09-25] MEDS: ENOXAPARIN SODIUM INJ 30 MG/0.3 ML DISP.SYRIN SUBCUT SCH (09:39)
[2018-09-25] MEDS: FOLIC ACID 1 MG TABLET PO SCH (09:39)
[2018-09-25] MEDS: THIAMINE HCL 100 MG TABLET PO SCH (09:39)
[2018-09-25] MEDS: FAMOTIDINE 20 MG TABLET PO SCH (09:39)
--- NOTE | 2018-09-25 14:12 | PDOC PROGRESS REPORT ---
Subjective Progress Note for:: 09/25/18 Subjective:: No significant change overnight. Since patient eating and drinking well I discontinued her IV fluids. She is awaiting placement to psychiatric facility. Reason For Visit: POLYPHARMACY INTENTIONAL OVERDOSE Physical Exam Vital Signs: Temp Pulse Resp BP Pulse Ox 98.4 F 93 14 115/63 100 09/25/18 12:08 09/25/18 12:08 09/25/18 12:08 09/25/18 12:08 09/25/18 12:08 Intake & Output 09/24/18 09/25/18 09/26/18 06:59 06:59 06:59 Intake Total 1987 3237 1506 Output Total 2400 Balance -413 3237 1506 Weight 50.8 kg 51.3 kg General appearance: PRESENT: no acute distress Neurological exam: PRESENT: alert, awake, oriented to person, oriented to place, oriented to time, oriented to situation Results Laboratory Results: 09/21/18 04:42 09/21/18 04:42 09/20/18 09/20/18 06:05 06:05 Creatine Kinase < 20 L CK-MB (CK-2) 4.18 Troponin I < 0.012 Impressions: Head CT 09/19/18 14:25 IMPRESSION: NO ACUTE INTRACRANIAL IMAGING FINDINGS. EVIDENCE OF ACUTE STROKE: NO. Assessment and Plan - Diagnosis (1) Acute encephalopathy Is this a current diagnosis for this admission?: Yes Plan: Has resolved (2) Intentional drug overdose Qualifiers: Encounter type: subsequent encounter Qualified Code(s): T50.902D - Poisoning by unspecified drugs, medicaments and biological substances, intentional self-harm, subsequent encounter Is this a current diagnosis for this admission?: Yes Plan: Patient has previous history of intentional drug overdose. Patient is being followed by psych. (3) New onset seizure Is this a current diagnosis for this admission?: Yes Plan: Most probably induced by cocktail of psychiatric medication taken with alcohol. Currently patient is seizure-free. She is not started on antiseizure medication. (4) Alcohol intoxication Is this a current diagnosis for this admission?: Yes Plan: Patient is counseled and encourage to remain sober and also she is told the consequence of mixing alcohol with antipsychotic medications. (5) Major depression Is this a current diagnosis for this admission?: Yes Plan: Patient may need inpatient psych facility treatment.
--- NOTE | 2018-09-25 16:59 | PDOC TRANSFER SUMMARY ---
General Admission Date/PCP: 09/19/18 17:56 Transfer Date: 09/25/18 Resuscitation Status: Full Code - Transfer Diagnosis (1) Acute encephalopathy Is this a current diagnosis for this admission?: Yes (2) Intentional drug overdose Is this a current diagnosis for this admission?: Yes (3) New onset seizure Is this a current diagnosis for this admission?: Yes (4) Alcohol intoxication Is this a current diagnosis for this admission?: Yes (5) Major depression Is this a current diagnosis for this admission?: Yes - Transfer Medications Home Medications: Alprazolam [Xanax XR 2 mg Tablet Extended Release] 2 mg PO Q12HP PRN 09/19/18 Bupropion HCl [Wellbutrin Xl 300mg 24hr Tablet] 300 mg PO DAILY [facility]D FILLED 07/13 FOR 30 DAY SUPPLY 09/19/18 Dextroamphetamine/Amphetamine [Dextroamp-Amphet ER 30 mg Cap] 30 mg PO BID 09/19/18 Eszopiclone 3 mg PO HSP PRN 09/19/18 Ethinyl Estradiol/Drospirenone [Drospirenone-Ee 3-0.02 mg Tab] 1 tab PO DAILY 09/19/18 Lurasidone HCl [Latuda] 20 mg PO DAILY 09/19/18 Lurasidone HCl [Latuda] 120 mg PO DAILY 09/19/18 Nitrofurantoin Macrocrystal [Macrodantin] 100 mg PO BID MDD FILLED 09/14 FOR 5 DAY SUPPLY 09/19/18 Phenazopyridine HCl [Pyridium 200 mg Tablet] 200 mg PO TIDP PRN 09/19/18 Quetiapine Fumarate [Seroquel 100 mg Tablet] 100 mg PO Q12 09/19/18 Transfer Medications: Current Medications Al Hydrox/Mg Hydrox/Simethicone (Maalox Plus Susp 30 Udcup) 15 ml PO Q6HP PRN PRN Reason: HEARTBURN Stop: 10/19/18 19:12 Clonidine HCl (Catapres-Tts 1 (0.1 Mg/24 Hr) Transderm Patch) 1 each TD Mo@10 MJ Stop: 10/20/18 17:59 Last Admin: 09/20/18 18:46 Dose: 1 each Documented by: Enoxaparin Sodium (Lovenox Inj 30 Mg/0.3 Ml Disp.Syrin) 30 mg SUBCUT DAILY MJ Stop: 10/20/18 09:59 Last Admin: 09/25/18 09:39 Dose: Not Given Documented by: Famotidine (Pepcid 20 Mg Tablet) 20 mg PO Q12 [facility] Stop: 10/19/18 21:59 Last Admin: 09/25/18 09:39 Dose: 20 mg Documented by: Folic Acid (Folvite 1 Mg Tablet) 1 mg PO DAILY MJ Stop: 10/20/18 09:59 Last Admin: 09/25/18 09:39 Dose: 1 mg Documented by: Hydralazine HCl (Apresoline Inj/Pf 20 Mg/1 Ml Sdv) 10 mg IV Q4HP PRN PRN Reason: SBP ABOVE 160 Stop: 10/20/18 03:47 Last Admin: 09/20/18 17:30 Dose: 10 mg Documented by: Hydroxyzine HCl (Vistaril Inj 50 Mg/1 Ml Vial) 50 mg IM Q8HP PRN PRN Reason: IF PO FORM IS REFUSED Stop: 10/20/18 16:59 Last Admin: 09/21/18 05:57 Dose: 50 mg Documented by: Hydroxyzine Pamoate (Vistaril 50 Mg Capsule) 50 mg PO Q8 MJ Stop: 10/20/18 21:59 Last Admin: 09/25/18 13:20 Dose: 50 mg Documented by: Lorazepam (Ativan Inj 2 Mg/1 Ml Vial) 2 mg IV Q4HP PRN PRN Reason: SEIZURES Stop: 09/27/18 16:51 Magnesium Hydroxide (Milk Of Magnesia 30 Ml Udcup) 30 ml PO DAILYP PRN PRN Reason: FOR CONSTIPATION Stop: 10/19/18 19:12 Olanzapine (Zyprexa 5 Mg Tablet) 5 mg PO Q6HP PRN PRN Reason: ANXIETY/AGITATION Stop: 10/22/18 11:15 Last Admin: 09/22/18 22:25 Dose: 5 mg Documented by: Promethazine HCl (Phenergan 25 Mg Tablet) 12.5 mg PO Q4HP PRN PRN Reason: FOR NAUSEA/VOMITING Stop: 10/19/18 19:12 Promethazine HCl (Phenergan Inj 25 Mg/1 Ml Vial) 6.25 mg IV Q4HP PRN PRN Reason: FOR NAUSEA/VOMITING Stop: 10/19/18 19:12 Sodium Chloride (Saline Flush 2.5 Ml Monoject Prefil Syrin) 2.5 ml IV Q8 [facility] Stop: 10/19/18 21:59 Last Admin: 09/25/18 13:21 Dose: Not Given Documented by: Thiamine HCl (Thiamine 100 Mg Tablet) 100 mg PO DAILY [facility] Stop: 10/20/18 09:59 Last Admin: 09/25/18 09:39 Dose: 100 mg Documented by: - Allergies Allergies/Adverse Reactions: No Known Allergies Allergy (Verified 09/19/18 07:19) Hospital Course Hospital Course: This is a 23 years old female patient with past medical history of major depression and on multiple antipsychotic medications which includes Lunesta, Latuda, Wellbutrin, Seroquel, Xanax and dextroamphetamine brought to hospital for acute encephalopathy after she overdosed herself with her psych medication while she is being intoxicated. Patient witnessed to have 3 episodes of grand mal seizure and she responded well to IV Ativan. Of note patient had had similar episode of intentional overdose previously. Patient IVCed and being followed by psych. No more seizure activity on the floor. Patient seen and examined at bedside. She is awake alert oriented. She is not in pain or distress. Her vital signs are stable and blood works are stable. Patient is s table enough to be discharged to inpatient psychiatric facility. Physical Exam Vital Signs: Temp Pulse Resp BP Pulse Ox 97.7 F 82 15 106/55 L 100 09/25/18 15:35 09/25/18 15:35 09/25/18 15:35 09/25/18 15:35 09/25/18 15:35 Intake & Output 09/24/18 09/25/18 09/26/18 06:59 06:59 06:59 Intake Total 1986 3237 1506 Output Total 2400 Balance -413 3237 1506 Weight 50.8 kg 51.3 kg General appearance: PRESENT: no acute distress, well-developed, well-nourished Head exam: PRESENT: atraumatic, normocephalic Eye exam: PRESENT: conjunctiva pink, EOMI, PERRLA. ABSENT: scleral icterus Ear exam: PRESENT: normal external ear exam Mouth exam: PRESENT: moist, tongue midline Neck exam: ABSENT: carotid bruit, JVD, lymphadenopathy, thyromegaly Respiratory exam: PRESENT: clear to auscultation doris. ABSENT: rales, rhonchi, wheezes Cardiovascular exam: PRESENT: RRR. ABSENT: diastolic murmur, rubs, systolic murmur Pulses: PRESENT: normal dorsalis pedis pul Vascular exam: PRESENT: normal capillary refill GI/Abdominal exam: PRESENT: normal bowel sounds, soft. ABSENT: distended, guarding, mass, organolmegaly, rebound, tenderness Rectal exam: PRESENT: deferred Extremities exam: PRESENT: full ROM. ABSENT: calf tenderness, clubbing, pedal edema Neurological exam: PRESENT: alert, awake, oriented to person, oriented to place, oriented to time, oriented to situation, CN II-XII grossly intact. ABSENT: motor sensory deficit Psychiatric exam: PRESENT: appropriate affect, normal mood. ABSENT: homicidal ideation, suicidal ideation Skin exam: PRESENT: dry, intact, warm. ABSENT: cyanosis, rash Results Laboratory Results: 09/21/18 04:42 09/21/18 04:42 09/20/18 09/20/18 06:05 06:05 Creatine Kinase < 20 L CK-MB (CK-2) 4.18 Troponin I < 0.012 Impressions: Head CT 09/19/18 14:25 IMPRESSION: NO ACUTE INTRACRANIAL IMAGING FINDINGS. EVIDENCE OF ACUTE STROKE: NO.
[2018-09-25 19:51] VITALS: BP 121/69
== END 2018-09-25 19:45 | DRG 917 ==
LOC: ER 05:55 → EH 17:56 → ICU 20:30 → 3N 09-20 18:02
PROVIDERS: ADMIT Hospitalist; ATTEND Hospitalist
DX: T42.4X2A Poisoning by benzodiazepines, intentional self-harm, initial encounter (principal); G92 Toxic encephalopathy; G40.509 Epileptic seizures related to external causes, not intractable, without status epilepticus; T48.6X2A Poisoning by antiasthmatics, intentional self-harm, initial encounter; F32.9 Major depressive disorder, single episode, unspecified; F10.20 Alcohol dependence, uncomplicated; I45.81 Long QT syndrome; F10.229 Alcohol dependence with intoxication, unspecified; Y90.6 Blood alcohol level of 120-199 mg/100 ml; Z91.5 Personal history of self-harm; Y92.009 Unspecified place in unspecified non-institutional (private) residence as the place of occurrence of the external cause; Z79.899 Other long term (current) drug therapy
CPT/HCPCS: 36415; 70450; 80048; 80053; 80307; 81001; 82550; 82553; 82962; 83735; 84484; 84703; 85025; 85027; 93005; 93010; 99285; J0360; J1200; J2060; J2405; J3360; J3410; J3411; J3480; J3490; J7030